=== PATIENT | female | born 1950 | race Caucasian/White ===

== ENCOUNTER 2023-10-27 12:21 | Outpatient (AMB) | payer MEDICARE, BC, SELFPAY ==
--- NOTE | 2023-10-27 12:39 | MHC.OFFVIS ---
Vital Signs 10/27/23 12:50 Height 5 ft 3 in Weight 192 lb BMI 34.0 BP 167/72 H Blood Pressure Location Lt brachial Position Sitting Pulse 78 Intake Visit Reasons: HX GERD Intake Note: Patient new consult for HX GERD. 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 Accompanied by: Self / Same As Patient Allergies Sulfa (Sulfonamide Antibiotics) Allergy (Unknown, Verified 02/27/24 12:55) Unknown Medication List - Last Reconciled 10/27/23 by Pamela Flores MD calcium citrate 250 mg PO DAILY cetirizine (Zyrtec) 10 mg PO DAILY PRN cholecalciferol (vitamin D3) 125 mcg PO DAILY escitalopram oxalate (Lexapro) 20 mg PO DAILY esomeprazole magnesium 20 mg PO DAILY HPI HPI HX GERD: Details: Initial GI clinic visit for this 72 YF for FU of GERD, hiatal hernia, multiple gastric polyps and hx of colon polyps LABS IN [facility] : None IMAGING STUDIES: None TODAY'S VISIT: Moved to [place] from [place] Lost her last Sep and has 2 daughter ([place] and [place]) Scheduled to see Dr Pratibha Titus in [place] in 2023 ([phone]) Pt is status post fundoplication 10 yrs ago Recently diagnosed with sleep apnea and started using a CPAP on Tuesday Having EGD every 6 months Had Colon in 05/23 Pt complains of heartburn and has been taking Esomeprazole 20 mg once a day and trying to reduce it Denies recent change in bowel habits, constipation, diarrhea, black stools or rectal bleeding. Patient admits to a hx of sleep apnea and denies major cardiac or pulmonary problems Denies problems with anesthesia in the past. Denies being on chronic anticoagulation. Takes Flax seed oil and Alleve prn for knee pain. Dad had colon polyps in his 50's or 60's Patient denies known family history of colon cancer or other GI malignancies. She was seeing a Urologist for microscopic hematurea - benign fatty tumor FU Cystoscopy 6 months and then once a year She was prescribed a vaginal insert which she has stopped taking Wt gain due to stress eating in the past and has started exercising at [employer] [facility] PAST GI HISTORY BY REVIEW OF MEDICAL RECORDS: 04/2023 EGD showed a moderate sized hiatal hernia and a Schatzki's ring which was dilated to 20 mm with a savory dilator. Fundic gland polyps was ablated with hot biopsy in the gastric body A hyperplastic polyp was removed from the cardia with a hot snare Gastric biopsies were negative for Helicobacter pylori and intestinal metaplasia Pt reports having an EGD every 6 months for FU of multiple gastric polyps 05/2023 Colonoscopy showed external hemorrhoids and rectosigmoid polyps were ablated. [facility] Medical History (Updated 03/01/24 @ 17:00 by Pamela Flores MD) Schatzki's ring Anxiety Microscopic hematuria Sleep apnea GERD (gastroesophageal reflux disease) Surgical History Hx of cystoscopy History of Parker fundoplication Hx of tonsillectomy Hx of colonoscopy History of esophagogastroduodenoscopy (EGD) Social History Household Members: Family Alcohol intake: current Alcohol intake frequency: holidays/special occasions only Patient Tobacco Use Status: Never used Tobacco Are you DNR?: No Advance Directives: No Advance Directives Information Provided: Yes Nutrition Risks: No Nutritional Risk Physical Exam Vital Signs: Last Vital Signs Pulse 78 10/27/23 12:50 BP 167/72 H 10/27/23 12:50 BMI result Body Mass Index 34.0 Const General: healthy appearing, no acute distress and anxious Nutritional Appearance: obese Orientation/consciousness: patient oriented x3 Limitations: no limitations HEENT Head: Yes normal to inspection Ears: hearing grossly normal bilaterally Eyes Sclerae: sclerae normal Pupils: Equal, round and reactive pupils present Neck Neck: Yes normal visual inspection Chest Chest palpation & inspection: normal inspection of the chest Resp Effort & Inspection: normal respiratory effort Auscultation: clear to auscultation bilaterally Cardio Palpation: normal PMI Rate: regular rate Rhythm: regular rhythm Heart sounds: S1 normal heart sound present, S2 normal heart sound present and no murmurs GI Palpation (GI): Soft to palpation, nontender and No hepatosplenomegaly present Auscultation: normal bowel sounds Rectal Exam - Female: deferred Skin General skin exam: no rashes or lesions noted Neuro General: patient oriented x3, gait normal and moves all extremities Cranial nerves: Yes Equal, round and reactive pupils present Psych Appearance: grossly normal Mental Status: mental status grossly normal Assessment & Plan Assessment & Plan (1) Hyperplastic polyps of stomach: Code(s): K31.7 - Polyp of stomach and duodenum Category: Medical (2) Fundic gland polyps of stomach, benign: Code(s): D13.1 - Benign neoplasm of stomach Category: Medical (3) GERD (gastroesophageal reflux disease): Code(s): K21.9 - Gastro-esophageal reflux disease without esophagitis Category: Medical (4) Hiatal hernia: Code(s): K44.9 - Diaphragmatic hernia without obstruction or gangrene Category: Medical (5) History of colon polyps: Code(s): Z86.010 - Personal history of colonic polyps Category: Medical Plan 72 YF for FU of GERD, hiatal hernia, multiple gastric polyps, colon polyps, anxiety and sleep apnea 04/2023 EGD showed a moderate sized hiatal hernia and a Schatzki's ring which was dilated to 20 mm with a savory dilator. Fundic gland polyps was ablated with hot biopsy in the gastric body A hyperplastic polyp was removed from the cardia with a hot snare Gastric biopsies were negative for Helicobacter pylori and intestinal metaplasia Pt reports having an EGD every 6 months for FU of multiple gastric polyps 05/2023 Colonoscopy showed external hemorrhoids and rectosigmoid polyps were ablated (no path available) Pt was advised to take Famotidine 20 mg twice daily Pt was advised to schedule an EGD summer for FU of gastric polyps She will be due for a colonoscopy in 05/2028 for follow-up of colon polyp FU in 3 months Medications: New famotidine (Pepcid) 20 mg PO BID 60 tabs 3RF 30 days escitalopram oxalate (Lexapro) 20 mg PO DAILY 60 tabs 3RF 60 days F41.9 - Anxiety disorder, unspecified Coding Level of Care Code New Pt Level 4 (78866) Diagnoses Hyperplastic polyps of stomach K31.7 Fundic gland polyps of stomach, benign D13.1 GERD (gastroesophageal reflux disease) K21.9 Hiatal hernia K44.9 History of colon polyps Z86.010 Time Spent (min) 27
[2023-10-27 12:50] VITALS: BP 167/72; PULSE 78; BMI 34.0
== END 2023-10-27 13:54 | disposition home or self-care (01) ==
PROVIDERS: Visit Provider Internal Medicine Gastroenterology
DX: K31.7 Polyp of stomach and duodenum (principal); D13.1 Benign neoplasm of stomach; K21.9 Gastro-esophageal reflux disease without esophagitis; K44.9 Diaphragmatic hernia without obstruction or gangrene; Z86.010 Personal history of colon polyps
CPT/HCPCS: 99204

== ENCOUNTER → 2023-10-27 12:21 | Outpatient (BNVA) | payer MEDICARE, BC, SELFPAY | PROVIDERS: Visit Provider Internal Medicine Gastroenterology | DX: K21.9 Gastro-esophageal reflux disease without esophagitis (principal); K44.9 Diaphragmatic hernia without obstruction or gangrene; K31.7 Polyp of stomach and duodenum | CPT/HCPCS: 99202 ==

== ENCOUNTER 2024-02-27 11:06 | Day surgery (SDC) | payer MEDICARE, BC, SELFPAY ==
[2024-02-23 14:10] VITALS: BMI 34.0
--- NOTE | 2024-02-24 09:58 | HO.ANESPROP2 ---
Documented by User: Estrella Telles NP 02/24/24 09:58 HPI - Anesthesia Eval Consult details Narrative: 73yo F for Upper Endoscopy PMFSH Active Problems Active Problems: All Active Problems Anxiety (Acute) Past Medical History Medical History Anxiety Microscopic hematuria Sleep apnea GERD (gastroesophageal reflux disease) Surgical History Surgical History Hx of cystoscopy History of Parker fundoplication Hx of tonsillectomy Hx of colonoscopy History of esophagogastroduodenoscopy (EGD) Social History Social History Household Members: Family Alcohol intake: current Alcohol intake frequency: holidays/special occasions only Patient Tobacco Use Status: Never used Tobacco Are you DNR?: No Advance Directives: No Advance Directives Information Provided: Yes Nutrition Risks: No Nutritional Risk Meds Allergies Allergy/AdvReac Type Severity Reaction Status Date / Time Sulfa (Sulfonamide Allergy Unknown Unknown Verified 02/27/24 12:55 Antibiotics) Home Medications ?Medication ?Instructions ?Recorded ?Confirmed ?Last Taken ?Type calcium citrate 250 mg PO DAILY 10/27/23 02/27/24 Unknown History cetirizine 10 mg tablet (Zyrtec) 10 mg PO DAILY PRN Allergic 10/27/23 02/27/24 Unknown History Symptoms cholecalciferol (vitamin D3) 125 125 mcg PO DAILY 10/27/23 02/27/24 Unknown History mcg (5,000 unit) capsule esomeprazole magnesium 20 mg 20 mg PO DAILY 10/27/23 02/27/24 Unknown History capsule,delayed release Exam Height,Weight and Vital Signs: Height 5 ft 3 in Weight 87.09 kg Assessment and Plan Assessment Anesthesia Assessment: Chart Reviewed Documented by User: Luz Astorga MD 02/27/24 13:43 PMFSH Past Medical History Medical History Anxiety Microscopic hematuria Sleep apnea GERD (gastroesophageal reflux disease) Functional capacity: uses cane/walker Surgical History Surgical History Hx of cystoscopy History of Parker fundoplication Hx of tonsillectomy Hx of colonoscopy History of esophagogastroduodenoscopy (EGD) History of Problems with Anesthesia: No Social History Social History Household Members: Family Alcohol intake: current Alcohol intake frequency: holidays/special occasions only Patient Tobacco Use Status: Never used Tobacco Are you DNR?: No Advance Directives: No Advance Directives Information Provided: Yes Nutrition Risks: No Nutritional Risk Meds Allergies Allergy/AdvReac Type Severity Reaction Status Date / Time Sulfa (Sulfonamide Allergy Unknown Unknown Verified 02/27/24 12:55 Antibiotics) Home Medications ?Medication ?Instructions ?Recorded ?Confirmed ?Last Taken ?Type calcium citrate 250 mg PO DAILY 10/27/23 02/27/24 Unknown History cetirizine 10 mg tablet (Zyrtec) 10 mg PO DAILY PRN Allergic 10/27/23 02/27/24 Unknown History Symptoms cholecalciferol (vitamin D3) 125 125 mcg PO DAILY 10/27/23 02/27/24 Unknown History mcg (5,000 unit) capsule esomeprazole magnesium 20 mg 20 mg PO DAILY 10/27/23 02/27/24 Unknown History capsule,delayed release Exam Airway Mallampati Class: III TM Dist: >3cm Neck ROM: Full Loose/Missing/Broken Teeth: No Heart: RRR Lungs: CTA Assessment and Plan Assessment Anesthesia Assessment: Anesthesia Plan Discussed Final Anesthetic Review History of Problems with Anesthesia: No NPO: Yes ASA Class: III Final Preanesthetic Review: Meds/Allgs Chart Reviewed, Consent Obtained/Reviewed and Anes Risks/Benef Reviewed Patient Risk: Intermediate Procedure Risk: Intermediate Anesthetic Plan Anesthetic Plan: MAC: Disposition: Standard PACU
[2024-02-27 12:31] VITALS: BMI 33.9
[2024-02-27] MEDS: Lactated Ringers 1,000 ML 100 ML IVCONT (12:44)
[2024-02-27 12:54] VITALS: BP 150/80; PULSE 65; RESP 18; TEMP 36.7; O2SAT 96
--- NOTE | 2024-02-27 13:32 | MHC.SHP ---
Pre-Procedural Eval Section A - 24 Hr Update-Section A only Date of Service: 02/27/24 The patient is an INPATIENT: No The patient has been examined within 24 hours of the surgical procedure. The History & Physical has been completed within 30 days and I have reviewed it.: No Section B - Complete if H&P > 30 days Chief Complaint: GERD Relevant Family History (Specify if Yes): No Relevant Social History: None Present Medications: see Short Stay Collaborative assessment Medical History: Significant History (Anxiety, GERD, sleep apnea) History of Previous Operations: Relevant previous surgery/procedure and date(s) (Hx of tonsillectomy Hx of colonoscopy History of esophagogastroduodenoscopy (EGD)) Allergies: Allergies Allergy/AdvReac Type Severity Reaction Status Date / Time Sulfa (Sulfonamide Allergy Unknown Unknown Verified 02/27/24 12:55 Antibiotics) Review of Systems Sugical H&P ROS: Negative: Constitution, Cardiovascular and Respiratory Exam Surgical H&P Exam: Normal: Heart, Normal: Lungs, Normal: Extremities and Normal: Abdomen Plan Diagnosis/Plan: Change (Proceed with EGD) I have reviewed the history and physical and performed a pertinent physical examination on my patient. No changes have occurred unless specified. Time Spent With Patient Time: Total time managing care of this patient today ____ minutes.
[2024-02-27 14:15] VITALS: BP 123/63; PULSE 73; RESP 18; TEMP 36.6; O2SAT 96
--- NOTE | 2024-02-27 14:16 | P.OP_ITS ---
Operative Note Operative Note Date of Service: 02/27/24 Narrative: FLEXIBLE TRANSORAL UPPER GASTROINTESTINAL ENDOSCOPY WITH BIOPSIES AND WATS (3D) AND TISSUE CYPHER Pre-op diagnosis: GERD Post-op diagnosis: GERD, esophagitis, hiatal hernia, gastric polyps Endoscopist:? Pamela Flores MD Anesthesia:?MAC UPPER ENDOSCOPY Consent: Indications for the procedure and potential complications of bleeding, perforation, reaction to medications and missed diagnosis were discussed with the patient and informed consent was obtained. Instrument: Olympus GIF H 190 mid size upper endoscope Monitoring: Vital signs and clinical assessment, continuous EKG monitoring, Pulse oximetry, Carbon Dioxide monitoring and blood pressure monitoring were done throughout the procedure. Procedure: The patient was placed in the left lateral decubitis position and pre-procedure medications were administered and a bite block was placed. The endoscope was inserted into the mouth and advanced under direct vision to the third part of duodenum. A careful inspection was made as the upper endoscope was withdrawn including a retroflexed examination of the proximal stomach; Findings and interventions are described below. Findings: Larynx: Normal Esophagus: GE junction at 30 cms, large hiatal hernia 30 to 35 cms. 1 cms segment of suspected Lujan's from 29 to 30 cms - biopsies were obtained and brushings were obtained for Watt (3D). Focal esophagitis at 29 cms. Stomach: Multiple 5 to 15 mm benign appearing gastric polyps in the body and fundus - biopsied. One larger polyp was removed with a hot snare and polyp was not retrieved Mild gastric antral erythema - biopsies were obtained from the antrum. Grade 4 flap valve on retroflexed examination of the cardia. Duodenum: Normal bulb and descending duodenum Intervention: Biopsies as noted above Impression and Post Procedure Diagnosis: Endoscopy Findings: ESOPHAGUS: large hiatal hernia 30 to 35 cms. 1 cms segment of suspected Lujan's from 29 to 30 cms - biopsies were obtained and brushings were obtained for Watt (3D). Focal esophagitis at 29 cms. STOMACH: Gastritis and multiple gastric polyps Plan: Pt has a FU appointment on 04/05/[address] Flores. Above findings were reviewed with the patient and relevant handouts were given and the discharge area. BIOPSIES A. Stomach, antrum, biopsy: Antral-type mucosa with mild chronic inactive inflammation; no Helicobacter organisms seen. B. Stomach, polyp: Fundic gland polyp with background mild chronic inactive inflammation; no Helicobacter organisms seen. C. Esophagus, distal, biopsy: - Cardiofundic-type mucosa with moderate chronic active inflammation; no fully- developed intestinal metaplasia seen. - No squamous epithelium identified
[2024-02-27 14:30] VITALS: BP 125/65; PULSE 65; RESP 18; O2SAT 95
[2024-02-27 14:45] VITALS: BP 131/71; PULSE 68; RESP 18; TEMP 36.6; O2SAT 96
== END 2024-02-27 15:14 | disposition home or self-care (01) ==
PROVIDERS: PCP Student in an Organized Health Care Education/Training Program; Visit Provider Internal Medicine Gastroenterology
PROC: 0DJ08ZZ Inspection of Upper Intestinal Tract, Via Natural or Artificial Opening Endoscopic (ICD-10-PCS; CPT 43235; principal; 2024-02-27 13:20)
DX: K21.9 Gastro-esophageal reflux disease without esophagitis (principal); K22.70 Barrett's esophagus without dysplasia; K31.7 Polyp of stomach and duodenum; K20.80 Other esophagitis without bleeding; K44.9 Diaphragmatic hernia without obstruction or gangrene; G47.30 Sleep apnea, unspecified; Z99.89 Dependence on other enabling machines and devices; Z79.899 Other long term (current) drug therapy; Z88.2 Allergy status to sulfonamides
CPT/HCPCS: 43239; 88305; 88313; J1920; J2704

== ENCOUNTER → 2024-02-27 11:06 | Outpatient (BNV) | payer MEDICARE, BC, SELFPAY | PROVIDERS: PCP Student in an Organized Health Care Education/Training Program; Visit Provider Internal Medicine Gastroenterology | DX: K21.00 Gastro-esophageal reflux disease with esophagitis, without bleeding (principal); K31.7 Polyp of stomach and duodenum; K22.70 Barrett's esophagus without dysplasia; K29.70 Gastritis, unspecified, without bleeding | CPT/HCPCS: 43239; 43251 ==

== ENCOUNTER 2024-05-03 09:14 | Outpatient (AMB) | payer MEDICARE, BC, SELFPAY ==
--- NOTE | 2024-05-03 09:20 | MHC.OFFVIS ---
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 by: Self / Same As Patient Allergies Sulfa (Sulfonamide Antibiotics) Allergy (Unknown, Verified 05/03/24 09:26) Unknown Medication List - Last Reconciled 05/03/24 by Pamela Flores MD escitalopram oxalate (Lexapro) 20 mg PO DAILY 60 days esomeprazole magnesium 20 mg PO DAILY famotidine (Pepcid) 20 mg PO BID 30 days fluticasone propionate 50 mcg/actuation (Flonase Allergy Relief) 1 spray intranasal DAILY [id number] 500-416.6-20 mg tabs PO levocetirizine (Xyzal) 5 mg PO QPM PRN multivitamin 1 tab PO DAILY red yeast rice 1,200 mg PO DAILY HPI HPI EGD results: Details: GI clinic visit for this 73 YF for FU of GERD, hiatal hernia, multiple gastric polyps and hx of colon polyps TODAY'S VISIT: EGD results were reviewed with the patient 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 behind the nose Referred to ENT surgeon Taking Esomeprazole in the am and Famotidine at 8 pm with adequate control of hb Taking Hydrolyzed Collagen powder for joint confucianism PAST VISITS: Moved to [place] from [place] Lost her last Sep and has 2 daughter ([place] and [place]) Scheduled to see Dr Pratibha Titus in [place] in 2023 ([phone]) Pt had hiatal hernia repair with fundoplication 10 yrs ago Complains of coughing after eating spicy foods (like rondon in red wine with onions) Recently diagnosed with sleep apnea and started using a CPAP on Tuesday Having EGD every 6 months Had Colon in 05/23 Pt complains of heartburn and has been taking Esomeprazole 20 mg once a day and trying to reduce it Denies recent change in bowel habits, constipation, diarrhea, black stools or rectal bleeding. Patient admits to a hx of sleep apnea and denies major cardiac or pulmonary problems Denies problems with anesthesia in the past. Denies being on chronic anticoagulation. Takes Flax seed oil and Alleve prn for knee pain. Dad had colon polyps in his 50's or 60's Patient denies known family history of colon cancer or other GI malignancies. She was seeing a Urologist for microscopic hematurea - benign fatty tumor FU Cystoscopy 6 months and then once a year She was prescribed a vaginal insert which she has stopped taking Wt gain due to stress eating in the past and has started exercising at [facility] LABS IN [facility] : None IMAGING STUDIES: None PAST GI HISTORY BY REVIEW OF MEDICAL RECORDS: 04/2023 EGD showed a moderate sized hiatal hernia and a Schatzki's ring which was dilated to 20 mm with a savory dilator. Fundic gland polyps was ablated with hot biopsy in the gastric body A hyperplastic polyp was removed from the cardia with a hot snare Gastric biopsies were negative for Helicobacter pylori and intestinal metaplasia Pt reports having an EGD every 6 months for FU of multiple gastric polyps 05/2023 Colonoscopy showed external hemorrhoids and recto-sigmoid polyps were ablated PFSH Medical History (Updated 03/01/24 @ 17:00 by Pamela Flores MD) Schatzki's ring Anxiety Microscopic hematuria Sleep apnea GERD (gastroesophageal reflux disease) Surgical History (Updated 04/11/24 @ 14:11 by Kristi Hartley) Hx of cystoscopy History of Parker fundoplication Hx of tonsillectomy Hx of colonoscopy History of esophagogastroduodenoscopy (EGD) Social History Household Members: Family Alcohol intake: current Alcohol intake frequency: holidays/special occasions only Patient Tobacco Use Status: Never used Tobacco Review of Systems Const All systems reviewed & are unremarkable except as noted in HPI and below Physical Exam Const General: healthy appearing, no acute distress and anxious Nutritional Appearance: obese Orientation/consciousness: patient oriented x3 Limitations: no limitations HEENT Head: Yes normal to inspection Ears: hearing grossly normal bilaterally Eyes Sclerae: sclerae normal Pupils: Equal, round and reactive pupils present Neck Neck: Yes normal visual inspection Chest Chest palpation & inspection: normal inspection of the chest Resp Effort & Inspection: normal respiratory effort Auscultation: clear to auscultation bilaterally Cardio Palpation: normal PMI Rate: regular rate Rhythm: regular rhythm Heart sounds: S1 normal heart sound present, S2 normal heart sound present and no murmurs GI Palpation (GI): Soft to palpation, nontender and No hepatosplenomegaly present Auscultation: normal bowel sounds Rectal Exam - Female: deferred Skin General skin exam: no rashes or lesions noted Neuro General: patient oriented x3, gait normal and moves all extremities Cranial nerves: Yes Equal, round and reactive pupils present Psych Appearance: grossly normal Mental Status: mental status grossly normal Assessment & Plan Assessment & Plan (1) GERD (gastroesophageal reflux disease): Code(s): K21.9 - Gastro-esophageal reflux disease without esophagitis Category: Medical (2) Fundic gland polyps of stomach, benign: Code(s): D13.1 - Benign neoplasm of stomach Category: Medical (3) Hyperplastic polyps of stomach: Code(s): K31.7 - Polyp of stomach and duodenum Category: Medical (4) Hiatal hernia: Code(s): K44.9 - Diaphragmatic hernia without obstruction or gangrene Category: Medical (5) History of colon polyps: Code(s): Z86.010 - Personal history of colon polyps Category: Medical Plan 73 YF for FU of GERD, hiatal hernia, multiple gastric polyps, colon polyps, anxiety and sleep apnea 04/2023 EGD showed a moderate sized hiatal hernia and a Schatzki's ring which was dilated to 20 mm with a savory dilator. Fundic gland polyps was ablated with hot biopsy in the gastric body A hyperplastic polyp was removed from the cardia with a hot snare Gastric biopsies were negative for Helicobacter pylori and intestinal metaplasia Pt reports having an EGD every 6 months for FU of multiple gastric polyps (some polyps were hyperplastic on biopsy) 05/2023 Colonoscopy showed external hemorrhoids and rectosigmoid polyps were ablated (no path available) Pt was advised to take Famotidine 20 mg twice daily 02/27/24 EGD was performed for FU of gastric polyps and showed a large hiatal hernia 30 to 35 cms, a 1 cms segment of suspected Lujan's from 29 to 30 cms, focal esophagitis at 29 cms, . Gastritis and multiple gastric polyps BIOPSIES A. Stomach, antrum, biopsy: Antral-type mucosa with mild chronic inactive inflammation; no Helicobacter organisms seen. B. Stomach, polyp: Fundic gland polyp with background mild chronic inactive inflammation; no Helicobacter organisms seen. C. Esophagus, distal, biopsy: - Cardiofundic-type mucosa with moderate chronic active inflammation; no fully-developed intestinal metaplasia seen. - No squamous epithelium identified 05/03/24 Taking Esomeprazole in the am and Famotidine at 8 pm with adequate control of hb Advised to take an extra Famotidine 1 hour before taking spicy foods Pt will be scheduled for an EGD in 1 year (FU of hyperplastic gastric polyps) She will be due for a colonoscopy in 05/2028 for follow-up of colon polyp FU in 4 month Coding Level of Care Code Est Pt Level 4 (97137) Diagnoses GERD (gastroesophageal reflux disease) K21.9 Fundic gland polyps of stomach, benign D13.1 Hyperplastic polyps of stomach K31.7 Hiatal hernia K44.9 History of colon polyps Z86.010 Time Spent (min) 25
[2024-05-03 09:26] VITALS: BP 145/65; PULSE 59; BMI 33.0
== END 2024-05-03 09:55 | disposition home or self-care (01) ==
PROVIDERS: PCP Student in an Organized Health Care Education/Training Program; Visit Provider Internal Medicine Gastroenterology
DX: K21.9 Gastro-esophageal reflux disease without esophagitis (principal); K31.7 Polyp of stomach and duodenum; K29.70 Gastritis, unspecified, without bleeding
CPT/HCPCS: 99214

== ENCOUNTER → 2024-05-03 09:14 | Outpatient (BNVA) | payer MEDICARE, BC, SELFPAY | PROVIDERS: PCP Student in an Organized Health Care Education/Training Program; Visit Provider Internal Medicine Gastroenterology | DX: K21.9 Gastro-esophageal reflux disease without esophagitis (principal); K44.9 Diaphragmatic hernia without obstruction or gangrene; K31.7 Polyp of stomach and duodenum; D13.1 Benign neoplasm of stomach; Z86.0100 Personal history of colon polyps, unspecified | CPT/HCPCS: 99212 ==

== ENCOUNTER → 2024-09-07 07:11 | Outpatient (AMB) | payer MEDICARE, BC, SELFPAY ==
--- OUTSIDE RECORDS SUMMARY | 2024-09-07 07:13 | XMS_ITS | Patient Health Record ---
[facility] Organization [facility] Address [address] [place] [address] Care Team Providers Care Bullet Casting Operator Name Role Phone Pratibha Robbins MD Primary Care Provider Un available MagdyVonen Unavailable [phone] Radha Ahmadi Unavailable [phone] Allergies Allergen (clinical drug ingredient) Drug/Non Drug Allergy documented on EMR Reaction Allergy Type Onset Date Status ibuprofen Advil Unknown Drug Allergy Active Iodine Unknown Drug Allergy Active Seasonale Unknown Drug Allergy Active Shrimp Flavor Unknown Drug Allergy Act terrance Substance with sulfonamide structure and antibacterial mechanism of action (substance) Sulfa Antibiotics Unknown Drug Allergy Active Reason For Referral No Information Medications Medication SIG (Take, Route, Frequency, Duration) Notes Start Date End Date Status Azelaic Acid Active Flaxseed Oil Not-Henry ing Clobetasol 17 Propionate Active Meloxicam 7.5 MG Oral for 30 Days Not-Taking Lexapro Active ZyrTEC Not-Taking Multivitamin Active Calcium Citrate Not- Taking Augmentin 500-125 MG 1 tablet Orally Twi ce a day for 10 day(s) 05/08/2024 Not-Taking Hydrolyzed Silk Acti ve Vitamin D3 Not-Takin g Red Yeast Rice Activ e Cephalexin 500 MG 1 capsule Orally Luz Elena ry 12 hours for 5 days Active Flonase Active [employer] Orthotics as directed 03/06/2024 Active Physical Therapy . . . 2-3x/week for 3- 4 weeks Active Esomeprazole Magnesium 20 MG TAKE ONE CAPSULE BY MOUTH TWICE DAILY Oral for 90 Days Active Famotidine 20 MG Oral for 30 Days Active Social History Tobacco Use: Social History Observation Description Date Details (start date - stop date) Never Smoker NA - NA Tobacco Use/Smoking Question Answer Notes Are you a: nonsmoker Additional Findings: Tobacco Non-User Current no n-smoker Alcohol Screen Question Answer Notes Did you have a drink contain ing alcohol in the past year? Yes How often did you have a dri nk containing alcohol in the past year? Monthly or less (1 point) Points 1 Interpretation Negative Tobacco use other than smoking: Question Answer Notes Are you an other tobacco user? No Problems Problem Type SNOMED Code ICD Code Onset Dates Problem Status W/U Status Risk Notes Problem Plantar fascial fibromatosis (89896763) Plantar fasciitis, bilateral (M72.2) Active confirmed Vital Signs Height 5ft3in in 06/12/2024 Weight 195 lbs 06/12/2024 BMI 34.54 kg/m2 06/12/2024 Procedures Procedure Date Ordered Date Performed Result Body Sit e 80520-[id number] OF HEMATOMA/FLUID 05/08/2024 N/A Encounters Encounter Location Date Provider Diagnosis [address] [address] 03/06/2024 Nallely Perica Tinea unguium B35.1 ; Pain in right toe(s) M79.674 ; Pain in right foot M79.671 ; Other myositis of right foot M60.871 ; Plantar fasciitis, bilateral M72.2 ; Bursitis of right foot M77.51 ; Pain in left foot M79.672 ; Other myositis of left foot M60.872 and Bursitis of left foot M77.[address] [address] 04/24/2024 Nallely Perica Tinea unguium B35.1 ; Plantar fasciitis, bilateral M72.2 ; Pain in right toe(s) M79.674 ; Pain in right foot M79.671 ; Other myositis of right foot M60.871 ; Bursitis of right foot M77.51 ; Pain in left foot M79.672 ; Other myositis of left foot M60.872 and Bursitis of left foot M77.[address] [address] 05/08/2024 Radha Ahmadi Hematoma of toe of right foot, initial encounter S90.121A ; Abscess of toe of right foot L02.611 and Acute cellulitis L03.90 [facility] [address] [address] 05/15/2024 Radha Ahmadi Cellulitis of toe of right foot L03.[address] [facility] [address] 06/12/2024 Nallely Curran Abscess of toe, right L02.611 ; Cellulitis of toe of right foot L03.031 ; Tinea unguium B35.1 ; Pain in right toe(s) M79.674 and Plantar fasciitis, bilateral M72.2 [facility] [address] [address] 06/04/2024 Nallely Perica [facility] [address] [address] 12/14/2023 Nallely Perica [facility] [address] [address] 03/06/2024 Nallely Perica [facility] [address] [address] 03/06/2024 Nallely Perica [facility] [address] [address] 04/24/2024 Nallely Perica [facility] [address] [address] 05/08/2024 Nallely Perica [facility] [address] [address] 06/12/2024 Nallely Perica [facility] [address] [address] 07/09/2024 Nallely Curran Assessments Encounter Date Diagnosis (ICD Code) Assessment Notes Treatment Notes Treatment Clinical Notes Section Notes 03/06/2024 Tinea unguium (ICD-10 - B35.1) 04/24/2024 Tinea unguium (ICD-10 - B35.1) 04/24/2024 Plantar fasciitis, bilateral (ICD-10 - M72.2) Patient Educated with: HEEL CORD STRETCHES.pdf (HEEL CORD STRETCHES.pdf) Patient Educated with: RICE THERAPY.pdf (RICE THERAPY.pdf) 05/08/2024 Abscess of toe of right foot (ICD-10 - L02.611) 05/08/2024 Hematoma of toe of right foot, initial encounter (ICD-10 - S90.121A) Patient Educated with: RICE THERAPY.pdf (RICE THERAPY.pdf) 05/15/2024 Cellulitis of toe of right foot (ICD-10 - L03.031) 06/12/2024 Abscess of toe, right (ICD-10 - L02.611) Patient Educated with: WOUND CARE INSTRUCTIONS.p df (WOUND CARE INSTRUCTIONS.p df) 06/12/2024 Cellulitis of toe of right foot (ICD-10 - L03.031) 06/12/2024 Tinea unguium (ICD-10 - B35.1) 05/08/2024 Acute cellulitis (ICD-10 - L03.90) 04/24/2024 Pain in right toe(s) (ICD-10 - M79.674) 03/06/2024 Pain in right toe(s) (ICD-10 - M79.674) 03/06/2024 Pain in right foot (ICD-10 - M79.671) 06/12/2024 Pain in right toe(s) (ICD-10 - M79.674) 04/24/2024 Pain in right foot (ICD-10 - M79.671) 06/12/2024 Plantar fasciitis, bilateral (ICD-10 - M72.2) 03/06/2024 Other myositis of right foot (ICD-10 - M60.871) 04/24/2024 Other myositis of right foot (ICD-10 - M60.871) 04/24/2024 Bursitis of right foot (ICD-10 - M77.51) 03/06/2024 Bursitis of right foot (ICD-10 - M77.51) 03/06/2024 Plantar fasciitis, bilateral (ICD-10 - M72.2) Patient Educated with: HEEL CORD STRETCHES.pdf (HEEL CORD STRETCHES.pdf) Patient Educated with: RICE THERAPY.pdf (RICE THERAPY.pdf) 03/06/2024 Pain in left foot (ICD-10 - M79.672) 04/24/2024 Pain in left foot (ICD-10 - M79.672) 04/24/2024 Other myositis of left foot (ICD-10 - M60.872) 03/06/2024 Other myositis of left foot (ICD-10 - M60.872) 03/06/2024 Bursitis of left foot (ICD-10 - M77.52) 04/24/2024 Bursitis of left foot (ICD-10 - M77.52) 05/08/2024 Other Plan Of Treatment Pending Test Test Name Order Date X ray : Foot, left 3V 03/06/2024 X ray : Foot, right 3V 03/06/2024 [id number] OF HEMATOMA/FLUID 024 Next Appt Details Provider Name:Nallely root, 09/07/2024 12:00:00 PM, [address] [place] [address], [phone], Insurance Providers Payer Name Payer Address Payer Phone Subscriber Number Group Number Insured Name Patient Relationship to Insured Coverage Start Date Coverage End Date Medicare [employer] [address] [place] [address] [id number] Sana Lopes Self - patient is the insured [facility] [address] [place] [address] [id number] Sana Lopes Self - patient is the insured Medical (General) History Medical History History ICD Code Anemia Anxiety Arthritis asthma Back pain Knee Pain Cataracts Hiatal hernia Reflux ( GERD) Measles Mumps Chicken pox Sleep apnea Surgical History Surgery Date(Month/Year) colonoscopy 2022 EGD 2022
--- OUTSIDE RECORDS SUMMARY | 2024-09-07 07:13 | XMS_ITS ---
Author Organization [facility] Address [address] [place] [address] Care Team Providers Care Side Framer Name Role Phone Rosendo SAMUEL, Pratibha Primary Care Provider Un available Nallely Curran Unavailable [phone] Encounters Encounter Location Date Provider Diagnosis [address] [address] 07/10/2024 Nallely Curran Plan Of Treatment Next Appt Details Provider Name:Nallely root, 09/07/2024 12:00:00 PM, [address] [place], [address], Progress Notes * Sana SHEPHERD KDOB:1950 (73 yo F)Acc No.[id number]:07/10/2024 Progress Note Patient:?CORA Sana Ilri Provider:?Nallely Curran DPM :1950???Age:73 Y???Sex:Female D ate:07/10/2024 Address:[address] [facility], [place], [place] Pcp:Pratibha Robbins MD Subjective: * Chief Complaints: * ??? * Medical History:? Objective: * Vitals:? Assessment: Plan: * Treatment: * Images: * The named appointment provid er may or may not be the originator of this progress note, and it is not deemed complete until electronically signed by the appointment provider. Sign off status: Pending * Provider:?Nallely Curran DPM Date:?05/2024 Generated for Gretel chen/Rebel/Kerry on:?09/07/2024 07:13 AM EST
--- OUTSIDE RECORDS SUMMARY | 2024-09-07 07:13 | XMS_ITS ---
Author Organization [facility] Address [address] [place] [address] Care Team Providers Care Commercial Food Instructor Name Role Phone Tino Jarrett Primary Care Provider REASON FOR VISIT 6 MONTHS F/UP WITH LABS 1 WEEK PRIOR Encounters Encounter Location Date Provider Diagnosis [facility] [address] [place] [address] 10/06/2023 Tino Jarrett Plan Of Treatment No Information Progress Notes * Sana SHEPHERDDOB:[birth year] (73 yo F)Acc No.[id number]:10/06/2023 Progress Notes Patient:?Sana SHEPHERD Provider:?Tino Jarrett MD :1950???Age:72 Y???Sex:Female D ate:10/06/2023 Address:[address], [place] Subjective: * Chief Complaints: * ???1. 6 MONTHS F/UP WITH LAB S 1 WEEK PRIOR. * Medical History:? * Ocular Surgical History:? Objective: * Vitals:? Assessment: Plan: * Treatment: * Care Plan Details* * Electronic signature of Lulu Jarrett MD on 09/07/2024 at 07:13 AM EST Sign off status: Pending * Provider:?Tino Jarrett MD Date:? Generated for Gretel chen/Rebel/Tobiasitting on:?09/07/2024 07:13 AM EST
--- OUTSIDE RECORDS SUMMARY | 2024-09-07 07:13 | XMS_ITS ---
Author Organization [facility] Address [address] [place] [address] Care Team Providers Care Protection Engineer Name Role Phone Pratibha Robbins MD Primary Care Provider Un available Nallely Curran Unavailable [phone] REASON FOR VISIT rs from 07/10/24 Encounters Encounter Location Date Provider Diagnosis [address] [address] 07/09/2024 Nallely Curran Plan Of Treatment Next Appt Details Provider Name:Nallely root, 09/07/2024 12:00:00 PM, [address] [place], [address], Progress Notes * Sana SHEPHERD KDOB:1950 (73 yo F)Acc No.[id number]:07/09/2024 Patient:?Sana SHEPHERD :1950???Age:73 Y???Sex:Female Address:[address] [facility], [place], [address] * true * Date:? Generated for Mariloui april/Rebel/eTransmitting on:?09/07/2024 07:13 AM EST
--- OUTSIDE RECORDS SUMMARY | 2024-09-07 07:14 | XMS_ITS ---
Author Organization [facility] Address [address] [address] Care Team Providers Care Deputy Sheriff Name Role Phone Tino Jarrett Primary Care Provider REASON FOR VISIT complaint STAT Encounters Encounter Location Date Provider Diagnosis [email or web address] [address] [place] [address] 09/05/2023 Tino Jarrett Plan Of Treatment No Information Progress Notes * Sana SHEPHERDDOB:[birth year] (72 yo F)Acc No.[id number]:09/05/2023 Patient:?Sana Shepherd :1950???Age:72 Y???Sex:Female Address:[address], [place], [address] * true * Date:? Generated for Gretel chen/Rebel/eTransmitting on:?09/07/2024 07:13 AM EST
--- OUTSIDE RECORDS SUMMARY | 2024-09-07 07:14 | XMS_ITS ---
Author Organization [facility] Address [address] [place] [address] Care Team Providers Care Beck Operator Name Role Phone Lulu Jarrettbaz Primary Care Provider [phone] REASON FOR VISIT Refill Request Medications Medication SIG (Take, Route, Frequency, Duration) Notes Start Date End Date Status Escitalopram Oxalate 20 MG 1 tablet Oral ly Once a day for 30 days Active Esomeprazole Magnesium 40 MG 1 capsule Orally Once a day for 30 days Active Encounters Encounter Location Date Provider Diagnosis [facility] - [address] [place] [address] 09/23/2023 Tino Jarrett Major depression single F32.0 and GERD (gastroesophageal reflux disease) K21.9 Assessments Encounter Date Diagnosis (ICD Code) Assessment Notes Treatment Notes Treatment Clinical Notes Section Notes 09/23/2023 Major depression single (ICD-10 - F32.0) 09/23/2023 GERD (gastroesophage al reflux disease) (ICD-10 - K21.9) Plan Of Treatment Medication Medication Name Sig Start Date Stop Date Notes Escitalopram Oxalate 20 MG 1 tablet Oral ly Once a day for 30 days Esomeprazole Magnesium 40 MG 1 capsule O rally Once a day for 30 days Progress Notes * Sana SHEPHERDDOB:[birth year] (72 yo F)Acc No.[id number]:09/23/2023 Patient:?Sana Shepherd :1950???Age:72 Y???Sex:Female Address:[address], [place], [address] * Refills? Refill Escitalopram Oxalate Tablet, 20 MG, Orally, 30, 1 tablet, Once a day, 30 days, Refills=0 Refill Esomeprazole Magnesium Capsule Delayed Release, 40 MG, Orally, 30 Capsule, 1 capsule, Once a day, 30 days, Refills=0 * true * Date:? Generated for Gretel chen/Rebel/Sallysmitting on:?09/07/2024 07:14 AM EST
--- OUTSIDE RECORDS SUMMARY | 2024-09-07 07:14 | XMS_ITS ---
Author Organization [facility] Address [address] [address] Care Team Providers Care Shoe Sprayer Name Role Phone LuizaLulu beltranbaz Primary Care Provider [phone] REASON FOR VISIT Refill Request Medications Medication SIG (Take, Route, Frequency, Duration) Notes Start Date End Date Status Escitalopram Oxalate 20 MG 1 tablet Oral ly Once a day for 30 days Active Esomeprazole Magnesium 40 MG 1 capsule Orally Once a day for 30 days Active Encounters Encounter Location Date Provider Diagnosis [facility] - [address] [place] [address] 09/23/2023 Tino Jarrett Major depression single F32.0 [...] * Sana SHEPHERDDOB:[birth year] (72 yo F)Acc No.[id number]:09/23/2023 Patient:?MariannePapito loz[place] :1950???Age:72 Y???Sex:Female Address:[address], [facility] [place], [address] * Refills? Refill Escitalopram Oxalate Tablet, 20 MG, Orally, 30, 1 tablet, Once a day, 30 days, Refills=0 Refill Esomeprazole Magnesium Capsule Delayed Release, 40 MG, Orally, 30 Capsule, 1 capsule, Once a day, 30 days, Refills=0 * true * Date:? Generated for Gretel chen/Rebel/Sallysmitting on:?09/07/2024 07:14 AM EST
--- OUTSIDE RECORDS SUMMARY | 2024-09-07 07:14 | XMS_ITS ---
Author Organization [facility] Address [address] [address] Care Team Providers Care Catastrophe Claims Supervisor Name Role Phone Tino Jarrett Primary Care Provider REASON FOR VISIT 6 MONTHS F/UP WITH LABS 1 WEEK PRIOR Encounters Encounter Location Date Provider Diagnosis [facility] [address] [place] [address] 10/06/2023 Tino Jarrett Plan Of Treatment No Information Progress Notes * Sana SHEPHERDDOB:[birth year] (73 yo F)Acc No.[id number]:10/06/2023 Progress Notes Patient:?Sana SHEPHERD Provider:?Tino Jarrett MD :1950???Age:72 Y???Sex:Female D ate:10/06/2023 Address:[address], [place] Subjective: * Chief Complaints: * ???1. 6 MONTHS F/UP WITH LAB S 1 WEEK PRIOR. * Medical History:? Objective: * Vitals:? Assessment: Plan: * Treatment: * Care Plan Details* * Electronic signature of Lulu Jarrett MD on 09/07/2024 at 07:13 AM EST Sign off status: Pending * Provider:?Tino Jarrett MD Date:? Generated for Gretel chen/Rebel/Tobiasitting on:?09/07/2024 07:13 AM EST
--- OUTSIDE RECORDS SUMMARY | 2024-09-07 07:14 | XMS_ITS ---
Author Organization [facility] Address [address] [place] [address] Care Team Providers Care Senior Sales Administrator Name Role Phone Tino Jarrett Primary Care Provider REASON FOR VISIT complaint STAT Encounters Encounter Location Date Provider Diagnosis [employer] [address] [address] 09/05/2023 Tino Jarrett Plan Of Treatment No Information Progress Notes * Sana SHEPHERDDOB:[birth year] (72 yo F)Acc No.[id number]:09/05/2023 Patient:?Sana Shepherd :1950???Age:72 Y???Sex:Female Address:[address], [place], [address] * true * Date:? Generated for Gretel chen/Rebel/eTransmitting on:?09/07/2024 07:13 AM EST
--- OUTSIDE RECORDS SUMMARY | 2024-09-07 07:14 | XMS_ITS | Data Portability ---
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 Lab None record ed. Referral None record ed. Procedures None record ed. Surgeries None record ed. Imaging None record ed. Medication Orders None record ed. Patient TargetsNo targets recorded. Patient InstructionsNo instructions recorded. Reason for Referral None Reported. Results Created Date Observation Date Name Description Value Unit Range Abnormal Flag Note LastModifiedBy Organization Detail LastModifiedTime 02/12/20 22 02/11/2022 PAP + HR HPV W REFLE X GENOT YPE (16 + 18/45 ) other info Other Inform ation Clini Bethanie fo :Nadya romane siva Elect megan lopez d by : Pro Stapleton MD on :01/30 11:25 :52 AM Not Available [facility] [address], [place], [address], 02/18/2022 12:10:44 02/12/20 22 02/18/2022 PAP + HR HPV W REFLE X GENOT YPE (16 + 18/45 ) cervix,thinp rep vial Cervi x,Thi nPrep Vial See Adequ acy Comme nt Speci men Adequ acy :Sati sfact ory for evalu ation . Prese nce or absen ce of endoc ervic al and/o r metap lasti c cells canno t be deter mined due to marke emilia atrop hy. NEGAT MAX FOR INTRA EPITH ELIAL LESIO N OR NATANAEL COLEMANCY Not Available [facility] [address], [place], [address], 02/18/2022 12:10:44 02/12/20 22 02/18/2022 PAP + HR HPV W REFLE X GENOT YPE (16 + 18/45 ) HPV HR (high risk) result Negati ve Not Available [facility] [address], [place], [address], 02/18/2022 12:10:44 Result Notes None recorded. Procedures Surgical History Date Name Laterality Status Provider Name and Address Organization Details Recorded Time 2 Date of Last Mammogram completed Tess Stockton (TERMED) [facility] 02/11/2022 13:16:20 0 Date of Last Pap Smear completed Tessfrancis Randleer (TERMED) [facility] 02/11/2022 13:16:20 ENT- Adenoidectomy/T onsillectomy completed Tess Tacker (TERMED) [facility] 02/11/2022 13:16:21 GI- Colonoscopy completed Tess Tacker (TERMED) [facility] 02/11/2022 13:16:21 Eye-Cataract Surgery completed Tess Tacker (TERMED) [facility] 02/11/2022 13:16:21 Derm-Skin Surgery completed Tses Tacker (TERMED) [facility] 02/11/2022 13:16:21 FLYING II INSTRUCTOR- Cryotherapy of the Cervix completed Tess Tacker (TERMED) [facility] 02/11/2022 13:16:21 Imaging Results None recorded. Procedure Notes None recorded. Medical Equipment None Reported. Allergies Allergen ID Allergen Name Allergen Category Reaction Reaction Severity Criticality Documentation Date Start Date Code Code System Note Provider Name and Address Organization Details Recorded Time [id number] Substance with sulfonami de structure and antibacte rial mechanism of action (substanc e) medicatio n Not available Not available Not available 02/11/2022 [id number] SNOMED Tess Stockton (TERMED) [facility] 13:19:06 Medications Name Sig Start Date Stop Date Status Note LastModified by Organization Details LastModified Time azithromyci n 250 mg tablet TAKE DIRECTED PER PACKAGE INSTRUCTI ONS 02/11 completed Not Available Not Available Not Available sucralfate 100 mg/mL oral suspension TAKE 10 ML BY MOUTH TWICE DAILY ON AN EMPTY STOMACH active Not Available Not Available No t Available esomeprazol e magnesium 40 mg capsule,del ayed release 02/11 completed Not Available Not Available Not Available methylpredn isolone 4 mg tablets in a dose pack TAKE BY MOUTH DIRECTED 02/11 completed Not Available Not Available Not Available clobetasol 0.05 % scalp solution APPLY EVERY NIGHT AT BEDTIME TO AFFECTED AREAS ON SCALP/FRO NTAL HAIRLINE UP TO 5 DAYS A WEEK active Not Available Not Available No t Available esomeprazol e magnesium 20 mg capsule,del ayed release TAKE ONE CAPSULE BY MOUTH TWICE DAILY active Not Available Not Available No t Available escitalopra m 10 mg tablet TAKE 1 TABLET BY MOUTH EVERY DAY active Not Available Not Available No t Available azelaic acid 15 % topical gel active Not Available Not Available Not Available bimatoprost 0.03 % drops with applicator, eyelash base APPLY 1 DROP VIA APPLICATO R ONCE A DAY NEEDED TO BROWS AND LASHES WITH APPLICATO R active Not Available Not Available No t Available Vitals Date Recorded Body weight Body mass index (BMI) Body height Systolic blood pressure Diastolic blood pressure Provider Name and Address Organization Details Last Updated DateTime 02/11/2022 77234.63 g 31.9 kg/m2 160.02 cm 161 mm[Hg] 58 mm[Hg] Tess Stockton (TERMED) [facility] 13:19:15 Social History Question Answer Notes LastModified by Organizat ion Details LastModified Time Tobacco Smoking Status Never Smoker Tess Stockton (TERMED) [facility], [facility] 02/11/2022 13:16:21 What Is Your Level Of Alcohol Consumption? Occasional Information not available 02/11/2022 Are You Blind Or Do You Have Difficulty Seeing? No Information not available 02/11/2022 Is Blood Transfusion Acceptable In An Emergency? Yes Information not available 02/11/2022 What Is Your Level Of Caffeine Consumption? Moderate Information not available 02/11/2022 Are You Deaf Or Do You Have Serious Difficulty Hearing? No Information not available 02/11/2022 What Type Of Diet Are You Following? REGULAR Information not available 02/11/2022 What Is The Highest Grade Or Level Of School You Have Completed Or The Highest Degree You Have Received? [id number] Information not available 02/11/2022 What Is Your Relationship Status? Information not available 02/11/2022 Do You Use Your Seat Belt Or Car Seat Routinely? Yes Information not available 02/11/2022 Do You Feel Stressed (tense, Restless, Nervous, Or Anxious, Or Unable To Sleep At Night)? [id number] Information not available 02/11/2022 Do You Use Any Illicit Or Recreational Drugs? No Information not available 02/11/2022 Sex: Unknown Functional Status Question Answer Note LastModified by Organizat ion Details LastModified Time Do you have difficulty walking or climbing stairs? No Information not available 02/11/2022 Do you have difficulty doing errands alone? No Information not available 02/11/2022 Do you have difficulty dressing or bathing? No Information not available 02/11/2022 What is your exercise level? Moderate Information not available 02/11/2022 Mental Status Question Answer Note LastModified by Organization D etails LastModified Time Do you have difficulty concentrating, remembering or making decisions? No Information no t available 02/11/2022 Family History Relationship Description Onset Age of this Age Resolved Age Notes LastModified by Organization Details LastModified Time Paternal Grandfather Hypertensive disorder htacker Not available 2021 13:16:20 Paternal Grandfather Heart disease htacker Not available 2021 13:16:20 Father Hereditary disease htacker Not available 2021 13:16:20 Father Heart disease htacker Not available 2021 13:16:20 Father Carcinoma of prostate htacker Not available 2021 13:27:18 Mother Diabetes mellitus htacker Not available 2021 13:16:20 Mother Disorder of thyroid gland htacker Not available 2021 13:16:20 Sister Disorder of thyroid gland htacker Not available 2021 13:16:20 Medical History Condition Response Neurology- Memory Loss/Dementia N Neurology- Stroke/TIA N Dermatology-Acne N Cancer- Genetic Screening N Endocrinology- Vitamin Deficiency N Endocrinology-Other N Hematology-Anemia N Cardiology- Atrial fib/atrial flutter N Nephrology-Renal Disease N Neurology- Seizures/Epilepsy N Cardiology- Heart Attack N Ortho-Fractures N Reviewed with no changes N Neurology- Neuropathy N Endocrinology- Prolactinoma N Urology- Recurrent Urinary Tract Infecti ons N Pulmonary- Seasonal Allergies/Allergic R hinitis Y Psych- PMS/PMDD N Pulmonary-Other N Pulmonary- Lung Disease N Endocrinology- Glucose Intolerance/Insul in Resistance N Psych- Anxiety Disorder N GI- Reflux/Ulcers Y Rheumatology-Arthritis N ID-Chicken Pox/Shingles N Cancer- Skin N GI- Irritable Bowel Syndrome N Cardiology- Heart Disease N ID-HIV N GI- Colon Polyps N Endocrinology- Osteopenia Y Endocrinology- Elevated Prolactin N ID-Other N Psych- Eating Disorder N Ortho- Arthritis N Urology- Urinary Incontinence N Hematology-Blood Transfusion N Pulmonary- Asthma N Urology- Hematuria (Blood in Urine) N Pulmonary- Sleep Apnea N Neurology- Dementia N Urology- Interstitial Cystitis N Endocrinology- Hypothyroidism N Eyes-other N Neurology- Multiple Sclerosis N GI- Hemorrhoids N Neurology-Other N ID- Rheumatic Fever N Hematology-Blood Clotting Disorder/Facto r V Leiden N Endocrinology- Osteoporosis Y Psych- Depression N Hematology-Other N Do you have any current or past medical conditions? N Ortho-Chronic Back Pain N ID- Tuberculosis/Positive PPD N Dermatology-Other N Dermatology-Eczema/Psoriasis N Rheumatology-Autoimmune Disease N Cardiology- High Cholesterol Y Cancer- Ovary N Cardiology- Heart Arrhythmia N Urology- Kidney or Bladder Problems N Psych- Mental Disorder N Psych-other N Hematology-DVT/Pulmonary Embolism N Endocrinology- Hyperthyroidism N Endocrinology- Thyroid Problems N Ortho-other N Other infectious diseases N Cancer- Breast N Psych- ADD N ID- Herpes N GI- Liver Disease/Hepatitis N Weight Management/Obesity Y Cancer- Colon N ENT- Hearing Loss N Cancer- Vulvar N Cancer- Vaginal N GI-Other N Neurology- Headaches/Migraines N Hematology-Bleeding Disorder N Endocrinology- Diabetes N Cancer- Cervical N No diseases or conditions N Pulmonary- COPD/Emphysema N GI- Vitamin Deficiency N GI- Crohn's/Ulcerative Colitis N Endocrinology- History of Gestational Di abetes N Psych- Bipolar Disease N ENT- Seasonal Allergies/Allergic Rhiniti s N Cardiology- High Blood Pressure N Cancer- Lung N Cancer- Endometrial/Uterine N Eyes- Glaucoma N Urology- Kidney Disease N Eyes- Vision Loss/Macular Degeneration N ENT-Other N Rheumatology-Other N Cardiac- Aneurysm N Urology- Kidney Infection N Cardiology- Heart Murmur/Mitral Valve Pr olapse N Urology- Stones N ID-MRSA N Cancer-Other N GI- Gallbladder Disease N Gynecological History Statement/Question Response Total lifetime partners Less than 5 Date of Last Mammogram 07/29/2022 HPV Test Negative Age at Menarche 17 Sexual orientation Heterosexual History of Endometriosis N History of Cervical Dysplasia Y Date of Last Colonoscopy Sexually active N Current Control Method: Abstinence History of Sexually Transmitted Infectio n N History of Infertility N HPV Vaccine Completed Date of last bone density 2019 History of abnormal PAP Y Date of Last Pap Smear 11/03/2019 History of Recurrent Ovarian Cyst N History of Vulvar Dysplasia N History of Fibroids N Obstetrics History GPAL:G 2 P 2 0 0 2 Type Value Multiple Births 0 Full Term 2 Induced 0 Spontaneous 0 Premature 0 Living 2 Ectopics 0 Total 2 Past Encounters Encounter ID Performer Location Encounter Start Date Encounter Closed Date Diagnosis/Indication Diagnosis SNOMED-CT Code Diagnosis ICD10 Code Diagnosis Note [id number] ROHAN SCOTT MD [id number] [place] [address] 02/11/2022 12:48:07 02/11/2022 13:56:55 Gynecologic examination 05375134 Z01.419 Screening for malignant neoplasm of cervix 437172298 Z12.4 Atrophic vaginitis 47111 000 N95.2 Asymptomat ic Health Concerns Section Related Observation LastModified by Organization Detai ls LastModified Time None Recorded Concern Status LastModified by Organization Details LastModified Time None Recorded Advance Directives Directive None Recorded Payers Encounter Date Sequence Insurance Name Policy Number Policy [place] Covered Member ID [place] Member ID Guarantor Name 02/11/2022 1 [place] Sana Lopes [id number] Sana Lopes 02/11/2022 2 [place]: [employer] (PPO) [id number] [id number] Sana Lopes Notes Date Note Type Note Provider Name and Address Organization Details Recorded Time 02/11/2022 text/html Pt present today for annual exam with no complaints.(EC) PAtient with hx of abnormal pap smear and HPV +. Also report cryotherapy ROHAN SCOTT MD [address], [address], [place], [address], [facility] [place] [facility], [facility] 02/11/2022 13:54:06 OBGyn Episode No OBEpisode recorded.
--- NOTE | 2024-09-07 07:23 | A.OFFVIS_ITS ---
Vital Signs 09/07/24 07:37 Height 5 ft 3.5 in Weight 200 lb BMI 34.9 BP 178/80 H Blood Pressure Location Lt brachial Position Sitting Pulse 61 Intake Visit Reasons: 4 month follow up Intake Note: Patient 4 month for GERD. Patient cc: occasional vomiting, GERD, coughing on food as chip, and gassy. Denies any other GI issues for today. Lapel Padder Required: No Accompanied by: Self / Same As Patient Allergies Sulfa (Sulfonamide Antibiotics) Allergy (Unknown, Verified 09/07/24 07:26) Unknown Medication List - Last Reconciled 09/07/24 by Pamela Flores MD escitalopram oxalate (Lexapro) 20 mg PO DAILY 60 days esomeprazole magnesium 20 mg PO DAILY famotidine 20 mg PO BID 30 days fluticasone propionate 50 mcg/actuation (Flonase Allergy Relief) 1 spray intranasal DAILY [id number] 500-416.6-20 mg tabs PO levocetirizine (Xyzal) 5 mg PO QPM PRN losartan 50 mg PO DAILY multivitamin 1 tab PO DAILY red yeast rice 1,200 mg PO DAILY HPI HPI 4 month follow up: Details: GI clinic visit for this 73 YF for FU of GERD, hiatal hernia, multiple gastric polyps and hx of colon polyps TODAY'S VISIT: Patient cc: occasional vomiting, GERD, coughing on food as chip, and gassy. GP started her on Lisinopril for Htn and started coughing. Switched to Losartan 50 mg and cough is better. 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 behind the nose Referred to ENT surgeon Taking Esomeprazole in the am and Famotidine at 8 pm with adequate control of hb Taking Hydrolyzed Collagen powder for joint mosque Moved to [place] from [place] Lost her last Sep and has 2 daughter ([place] and [place]) Scheduled to see Dr Pratibha Titus in [place] in 2023 ([phone]) Pt had hiatal hernia repair with fundoplication 10 yrs ago Complains of coughing after eating spicy foods (like rondon in red wine with onions) Recently diagnosed with sleep apnea and started using a CPAP on Tuesday Having EGD every 6 months Had Colon in 05/23 Pt complains of heartburn and has been taking Esomeprazole 20 mg once a day and trying to reduce it Denies recent change in bowel habits, constipation, diarrhea, black stools or rectal bleeding. Patient admits to a hx of sleep apnea and denies major cardiac or pulmonary problems Denies problems with anesthesia in the past. Denies being on chronic anticoagulation. Takes Flax seed oil and Alleve prn for knee pain. Dad had colon polyps in his 50's or 60's Patient denies known family history of colon cancer or other GI malignancies. She was seeing a Urologist for microscopic hematurea - benign fatty tumor FU Cystoscopy 6 months and then once a year She was prescribed a vaginal insert which she has stopped taking Wt gain due to stress eating in the past and has started exercising at [facility] [employer] : None IMAGING STUDIES: None PAST GI HISTORY BY REVIEW OF MEDICAL RECORDS: 04/2023 EGD showed a moderate sized hiatal hernia and a Schatzki's ring which was dilated to 20 mm with a savory dilator. Fundic gland polyps was ablated with hot biopsy in the gastric body A hyperplastic polyp was removed from the cardia with a hot snare Gastric biopsies were negative for Helicobacter pylori and intestinal metaplasia Pt reports having an EGD every 6 months for FU of multiple gastric polyps 05/2023 Colonoscopy showed external hemorrhoids and recto-sigmoid polyps were ablated [facility] Medical History Schatzki's ring Anxiety Microscopic hematuria Sleep apnea GERD (gastroesophageal reflux disease) Surgical History Hx of cystoscopy History of Parker fundoplication Hx of tonsillectomy Hx of colonoscopy History of esophagogastroduodenoscopy (EGD) Social History Household Members: Family Alcohol intake: current Alcohol intake frequency: holidays/special occasions only Patient Tobacco Use Status: Never used Tobacco Review of Systems Const All systems reviewed & are unremarkable except as noted in HPI and below Physical Exam Vital Signs: Last Vital Signs Pulse 61 09/07/24 07:37 BP 178/80 H 09/07/24 07:37 BMI result Body Mass Index 34.9 Const General: healthy appearing, no acute distress and anxious Nutritional Appearance: obese Orientation/consciousness: patient oriented x3 Limitations: no limitations HEENT Head: Yes normal to inspection Ears: hearing grossly normal bilaterally Eyes Sclerae: sclerae normal Pupils: Equal, round and reactive pupils present Neck Neck: Yes normal visual inspection Chest Chest palpation & inspection: normal inspection of the chest Resp Effort & Inspection: normal respiratory effort Auscultation: clear to auscultation bilaterally Cardio Palpation: normal PMI Rate: regular rate Rhythm: regular rhythm Heart sounds: S1 normal heart sound present, S2 normal heart sound present and no murmurs GI Palpation (GI): Soft to palpation, nontender and No hepatosplenomegaly present Auscultation: normal bowel sounds Rectal Exam - Female: deferred Skin General skin exam: no rashes or lesions noted Neuro General: patient oriented x3, gait normal and moves all extremities Cranial nerves: Yes Equal, round and reactive pupils present Psych Appearance: grossly normal Mental Status: mental status grossly normal Assessment & Plan Assessment & Plan (1) GERD (gastroesophageal reflux disease): Code(s): K21.9 - Gastro-esophageal reflux disease without esophagitis Category: Medical (2) Hyperplastic polyps of stomach: Code(s): K31.7 - Polyp of stomach and duodenum Category: Medical (3) Hiatal hernia: Code(s): K44.9 - Diaphragmatic hernia without obstruction or gangrene Category: Medical (4) History of colon polyps: Code(s): Z86.010 - Personal history of colon polyps Category: Medical Plan 73 YF for FU of GERD, hiatal hernia, multiple gastric polyps, colon polyps, anxiety and sleep apnea 04/2023 EGD showed a moderate sized hiatal hernia and a Schatzki's ring which was dilated to 20 mm with a savory dilator. Fundic gland polyps was ablated with hot biopsy in the gastric body A hyperplastic polyp was removed from the cardia with a hot snare Gastric biopsies were negative for Helicobacter pylori and intestinal metaplasia Pt reports having an EGD every 6 months for FU of multiple gastric polyps (some polyps were hyperplastic on biopsy) 05/2023 Colonoscopy showed external hemorrhoids and rectosigmoid polyps were ablated (no path available) Pt was advised to take Famotidine 20 mg twice daily 02/27/24 EGD was performed for FU of gastric polyps and showed a large hiatal hernia 30 to 35 cms, a 1 cms segment of suspected Lujan's from 29 to 30 cms, focal esophagitis at 29 cms, . Gastritis and multiple gastric polyps BIOPSIES A. Stomach, antrum, biopsy: Antral-type mucosa with mild chronic inactive inflammation; no Helicobacter organisms seen. B. Stomach, polyp: Fundic gland polyp with background mild chronic inactive inflammation; no Helicobacter organisms seen. C. Esophagus, distal, biopsy: - Cardiofundic-type mucosa with moderate chronic active inflammation; no fully- developed intestinal metaplasia seen. - No squamous epithelium identified 05/03/24 Taking Esomeprazole in the am and Famotidine at 8 pm with adequate control of hb Advised to take an extra Famotidine 1 hour before taking spicy foods Pt will be scheduled for an EGD in 1 year (FU of hyperplastic gastric polyps) She will be due for a colonoscopy in 05/2028 for follow-up of colon polyp 09/07/24 Switch to Pantoprazole 40 mg daily for GERD (due to insurance coverage) Pt advised to call if symptoms not controlled with Pantoprazole Schedule EGD in January, - FU of gastric polyps FU in 4 months Medications: New pantoprazole 40 mg PO DAILY 30 days 30 tabs 5RF K21.9 - Gastro-esophageal reflux disease without esophagitis Coding Level of Care Code Est Pt Level 4 (16024) Diagnoses GERD (gastroesophageal reflux disease) K21.9 Hyperplastic polyps of stomach K31.7 Hiatal hernia K44.9 History of colon polyps Z86.010 Time Spent (min) 21
== END | disposition home or self-care (01) ==
PROVIDERS: PCP Student in an Organized Health Care Education/Training Program; Visit Provider Internal Medicine Gastroenterology
CPT/HCPCS: 99214

== ENCOUNTER → 2024-09-07 07:11 | Outpatient (BNVA) | payer MEDICARE, BC, SELFPAY | PROVIDERS: PCP Student in an Organized Health Care Education/Training Program; Visit Provider Internal Medicine Gastroenterology | DX: K21.9 Gastro-esophageal reflux disease without esophagitis (principal); K31.7 Polyp of stomach and duodenum; K44.9 Diaphragmatic hernia without obstruction or gangrene; Z86.0109 Personal history of other colon polyps | CPT/HCPCS: 99212 ==

== ENCOUNTER 2025-02-11 08:37 | Day surgery (SDC) | payer MEDICARE, BC, SELFPAY ==
--- OUTSIDE RECORDS SUMMARY | 2025-01-11 13:25 | XMS_ITS | Patient Health Record ---
Author Organization [facility] [place] Address [address] [address] Care Team Providers Care Organic Chemist Name Role Phone Tino Jarrett Primary Care Provider [phone] Allergies Allergen (clinical drug ingredient) Drug/Non Drug Allergy documented on EMR Reaction Allergy Type Onset Date Status Shellfish (FN) Shrimp anaphylaxis Drug Allergy Active Substance with sulfonamide structure and antibacterial mechanism of action (substance) Sulfa childhood reaction Drug Allergy Active Reason For Referral No Information Medications Medication SIG (Take, Route, Frequency, Duration) Notes Start Date End Date Status Esomeprazole Magnesium 40 MG 1 capsule Orally Once a day for 30 days Active Calcium Citrate-Vitamin D 500-400 MG-UNIT 2 tablet Orally Twice a day *Pick strength-form from [facility] for eRX* Unknown ProAir HFA 108 (90 Base) MCG/ACT 2 puffs as needed Inhalation every 4 hrs *Reorder from [facility] for eRx and Interaction Alerts* 12/28/2018 Unknown Escitalopram Oxalate 20 MG 1 tablet Orally Once a day for 30 days Active ZyrTEC Allergy 10 MG 1 tablet Orally Once a day Unknown Azelaic Acid 15 % 1 application Externally Twice a day Unknown Flaxseed (Linseed) 1000 MG Orally Unknown Clobetasol Propionate 0.05 % 1 application Externally Twice a day for 14 day(s) Unknown Calcium 600 MG 1 Tablet Orally Twice a day Unknown Estradiol 10 MCG 1 _insert Vaginal Two times a Week for 90 days *Pick strength-form from [facility] for eRX* Active Vitamin D-3 1000 UNIT 4 capsules Orally Once a day *Pick strength-form from [employer] for eRX* Unknown Multivitamin Adult - 1 Tablet Orally Once a day Unknown Red Yeast Rice 600 MG 1 Tablet Orally Twice a day Unknown Immunizations Vaccine Route Administration Date Status Comme nts COVID Unknown 08/14/2020 Administered COVID Unknown 09/04/2020 Administered COVID Unknown 05/04/2021 Administered FLU AD High Dose IM Intramuscular 04/20/2021 Administered tolerated inj well FLU AD High Dose IM Intramuscular 04/08/2023 Administered Pt tolerated well. Flu Shot Afluria IM Intramuscular 04/06/2018 Administered Flu Shot Afluria IM Intramuscular 03/23/2020 Administered FLUCELVAX (cc11V4) IM Intramuscular 05/26/2017 Administere d Pfizer Bivalent Unknown 04/22/2022 Administered pneumococcal 13-valent conjugate vaccine Unknown 10/01/2013 Administered Immunization Given by from source eCW:: pneumococcal 13-valent conjugate vaccine Unknown 12/10/2014 Administered Immunization Given by from source eCW:: Td (adult) preservative free Unknown 05/26/2009 Pending Immunization Given by from source eCW:: Td (adult) preservative free IM Intramuscular 01/22/2023 Administered pt tolerated well Zostavax Shingles Unknown 01/06/2015 Administered Immun ization Given by from source eCW:: Zostavax Shingles Unknown 05/26/2015 Pending Immuniz ation Given by from source eCW:: Problems Problem Type SNOMED Code ICD Code Onset Dates Problem Status W/U Status Risk Notes Problem 88546431 Age-related osteoporosis without current pathological fracture (M81.0) Active confirmed Problem 20944284 Vitamin D defici ency (E55.9) Active confirmed Problem Obstructive sleep apnea (62796712) Obstructive sleep apnea (G47.33) Active confirmed Problem Gastroesophageal reflux disease (disorder) (974426092) Chronic GERD (K21.9) Active confirmed Problem Daytime somnolence (494625452910) Daytime somnolence (R40.0) Active confirmed Problem 711704193 GERD (gastroesophageal reflux disease) (K21.9) Active confirmed Problem Morbid obesity (408225316) Morbid obesity (E66.01) Active confirmed Problem Obese class I (200307399728771) BMI 33.0-33.9,adult (Z68.33) Active confirmed Problem Periodic limb movement disorder (460595506) Periodic limb movement (G47.61) Active confirmed Problem 866500163 Hypercholesterem ia (E78.00) Active confirmed Problem 000704191 Allergy to polle n (J30.1) Active confirmed Problem COPD - Chronic obstructive pulmonary disease (38432344) COPD (J44.9) Active confirmed SU, on pro-ai r Problem Mild major depression, single episode (87830783) Major depression single (F32.0) Active confirmed Plan Of Treatment Pending Test Test Name Order Date DEXA Hip and Spine 04/15/2020 Future Test Test Name Order Date SENOBRIGHT ARMINDA 08/08/2019 Insurance Providers Payer Name Payer Address Payer Phone Subscriber Number Group Number Insured Name Patient Relationship to Insured Coverage Start Date Coverage End Date MEDICARE [address] [place] [phone] [id number] Sana Lopes Self - patient is the insured 7 Medical (General) History Medical History History ICD Code GERD (gastroesophageal reflux disease) K 21.9 Hypercholesteremia E78.00 Allergy to pollen J30.1 Microscopic hematuria R31.29 Age-related osteoporosis without current pathological fracture M81.0 Vitamin D deficiency E55.9 Chronic GERD K21.9 Microscopic hematuria R31.29 Chronic GERD K21.9 Chronic GERD Surgical History Surgery Date(Month/Year) colonoscopy 2020 EGD 2020 tonsillectomy and adenoidectomy Hernia Repair hiatal with fundoplication 08/2016 Hospitalization History Reason Date(Month/Year) as above
[2025-02-07 09:42] VITALS: BMI 35.4
--- NOTE | 2025-02-08 09:57 | HO.ANESPROP2 ---
Documented by User: Estrella Telles NP 02/08/25 09:57 HPI - Anesthesia Eval Consult details Narrative: 74yo F for Upper Endoscopy PMFSH Active Problems Active Problems: All Active Problems History of colon polyps (Acute) Hiatal hernia (Acute) Hyperplastic polyps of stomach (Acute) Fundic gland polyps of stomach, benign (Acute) Anxiety (Acute) GERD (gastroesophageal reflux disease) (Acute) Past Medical History Medical History Allergies HTN (hypertension) OSIRIS (obstructive sleep apnea) Hiatal hernia Schatzki's ring Anxiety Microscopic hematuria GERD (gastroesophageal reflux disease) Surgical History Surgical History (Updated 02/11/25 @ 08:56 by Sarah Craig RN) Hx of cystoscopy History of Parker fundoplication Hx of tonsillectomy Hx of colonoscopy History of esophagogastroduodenoscopy (EGD) History of Problems with Anesthesia: No Social History Social History Household Members: Family Alcohol intake: current Alcohol intake frequency: holidays/special occasions only Patient Tobacco Use Status: Never used Tobacco Use of substances other than those prescribed or required for medical reasons: No Are you DNR?: No Advance Directives: No Advance Directives Information Provided: Yes Meds Allergies Allergy/AdvReac Type Severity Reaction Status Date / Time Sulfa (Sulfonamide Allergy Unknown Unknown Verified 02/11/25 08:54 Antibiotics) Home Medications ?Medication ?Instructions ?Recorded ?Confirmed ?Last Taken ?Type fluticasone propionate 50 1 spray intranasal DAILY 05/03/24 02/07/25 02/11/25 07:45 History mcg/actuation nasal spray,suspension (Flonase Allergy Relief) glucosamine 500 iu-yyelklmis-dhq 1 tab PO DAILY 05/03/24 02/07/25 Unknown History no1 416.6 mg-C 20 bu-qkmq-cbyj tablet levocetirizine 5 mg tablet (Xyzal) 5 mg PO QPM PRN allergies 05/03/24 02/07/25 Unknown History multivitamin 1 tab PO DAILY 05/03/24 02/07/25 Unknown History red yeast rice 600 mg capsule 1,200 mg PO DAILY 05/03/24 02/07/25 Unknown History losartan 50 mg tablet 50 mg PO DAILY 09/07/24 02/07/2525 07:45 History amlodipine 10 mg tablet 10 mg PO DAILY 02/11/25 02/11/25 02/11/25 07:45 History azelaic acid 15 % topical gel topical DAILY 02/11/25 Unknown History cholecalciferol (vitamin D3) 25 25 mcg PO DAILY 02/11/25 02/11/25 Unknown History mcg (1,000 unit) tablet (Vitamin D3) clobetasol 0.05 % scalp solution topical 02/11/25 Unknown History Exam Height,Weight and Vital Signs: Height 5 ft 3 in Weight 90.718 kg Assessment and Plan Final Anesthetic Review History of Problems with Anesthesia: No Documented by User: Isaías Duran MD 02/11/25 10:40 [facility] Past Medical History Medical History Allergies HTN (hypertension) OSIRIS (obstructive sleep apnea) Hiatal hernia Schatzki's ring Anxiety Microscopic hematuria GERD (gastroesophageal reflux disease) Family History Family history of problems with anesthesia: No Surgical History Surgical History (Updated 02/11/25 @ 08:56 by Sarah Craig RN) Hx of cystoscopy History of Parker fundoplication Hx of tonsillectomy Hx of colonoscopy History of esophagogastroduodenoscopy (EGD) Social History Social History Household Members: Family Alcohol intake: current Alcohol intake frequency: holidays/special occasions only Patient Tobacco Use Status: Never used Tobacco Use of substances other than those prescribed or required for medical reasons: No Are you DNR?: No Advance Directives: No Advance Directives Information Provided: Yes Meds Allergies Allergy/AdvReac Type Severity Reaction Status Date / Time Sulfa (Sulfonamide Allergy Unknown Unknown Verified 02/11/25 08:54 Antibiotics) Home Medications ?Medication ?Instructions ?Recorded ?Confirmed ?Last Taken ?Type fluticasone propionate 50 1 spray intranasal DAILY 05/03/24 02/07/2502/11/25 07:45 History mcg/actuation nasal spray,suspension (Flonase Allergy Relief) glucosamine 500 ze-njtlkkcaw-ykm 1 tab PO DAILY 05/03/24 02/07/25 Unknown History no1 416.6 mg-C 20 zm-uvuc-mqis tablet levocetirizine 5 mg tablet (Xyzal) 5 mg PO QPM PRN allergies 05/03/24 02/07/25 Unknown History multivitamin 1 tab PO DAILY 05/03/24 02/07/25 Unknown History red yeast rice 600 mg capsule 1,200 mg PO DAILY 05/03/24 02/07/25 Unknown History losartan 50 mg tablet 50 mg PO DAILY 09/07/24 02/07/25 02/11/25 07:45 History amlodipine 10 mg tablet 10 mg PO DAILY 02/11/25 02/11/25 02/11/25 07:45 History azelaic acid 15 % topical gel topical DAILY 02/11/25 Unknown History cholecalciferol (vitamin D3) 25 25 mcg PO DAILY 02/11/25 02/11/25 Unknown History mcg (1,000 unit) tablet (Vitamin D3) clobetasol 0.05 % scalp solution topical 02/11/25 Unknown History Exam Airway Mallampati Class: II TM Dist: <=3cm Neck ROM: Full Loose/Missing/Broken Teeth: Yes Heart: ok Lungs: ok Assessment and Plan Assessment Anesthesia Assessment: Anesthesia Plan Discussed and Chart Reviewed Final Anesthetic Review Family History of Problems with Anesthesia: No NPO: Yes ASA Class: III Final Preanesthetic Review: No Changes in Pt Med Stat, Meds/Allgs Chart Reviewed, Consent Obtained/Reviewed and Anes Risks/Benef Reviewed Patient Risk: Intermediate Procedure Risk: Intermediate Anesthetic Plan Anesthetic Plan: Agree w/ Assess. and Plan and TIVA Disposition: Standard PACU
[2025-02-11 08:56] VITALS: BMI 36.0
[2025-02-11 09:02] VITALS: BP 142/60; PULSE 56; RESP 16; TEMP 36.4; O2SAT 95
[2025-02-11] MEDS: Lactated Ringers 1,000 ML 100 ML IVCONT (09:21)
--- NOTE | 2025-02-11 09:29 | MHC.SHP ---
Pre-Procedural Eval Section A - 24 Hr Update-Section A only Date of Service: 02/11/25 The patient is an INPATIENT: No The patient has been examined within 24 hours of the surgical procedure. The History & Physical has been completed within 30 days and I have reviewed it.: No Section B - Complete if H&P > 30 days Chief Complaint: Follow-up of multiple gastric polyps Relevant Family History (Specify if Yes): No Relevant Social History: None Present Medications: see Short Stay Collaborative assessment Medical History: Significant History (Schatzki's ring Anxiety Microscopic hematuria Sleep apnea GERD (gastroesophageal reflux disease)) History of Previous Operations: Relevant previous surgery/procedure and date(s) (Hx of cystoscopy History of Parker fundoplication Hx of tonsillectomy Hx of colonoscopy History of esophagogastroduodenoscopy (EGD)) Allergies: Allergies Allergy/AdvReac Type Severity Reaction Status Date / Time Sulfa (Sulfonamide Allergy Unknown Unknown Verified 02/11/25 08:54 Antibiotics) Review of Systems Sugical H&P ROS: Negative: Constitution, Cardiovascular, Respiratory and Gastrointestinal Exam Surgical H&P Exam: Normal: Heart, Normal: Lungs, Normal: Extremities and Normal: Abdomen Plan Diagnosis/Plan: Unchanged I have reviewed the history and physical and performed a pertinent physical examination on my patient. No changes have occurred unless specified. Time Spent With Patient Time: Total time managing care of this patient today ____ minutes.
--- NOTE | 2025-02-11 11:08 | P.OP_ITS ---
Operative Note Operative Note Date of Service: 02/11/25 Narrative: FLEXIBLE TRANSORAL UPPER GASTROINTESTINAL ENDOSCOPY WITH SNARE POLYPECTOMY Pre-op diagnosis: Follow-up of multiple gastric polyps, GERD, Post-op diagnosis: Multiple gastric polyps, hiatal hernia, GERD Endoscopist:? Pamela Flores MD Anesthesia:?MAC UPPER ENDOSCOPY Consent: Indications for the procedure and potential complications of bleeding, perforation, reaction to medications and missed diagnosis were discussed with the patient and informed consent was obtained. Instrument: Olympus GIF H 190 mid size upper endoscope Monitoring: Vital signs and clinical assessment, continuous EKG monitoring, Pulse oximetry, Carbon Dioxide monitoring and blood pressure monitoring were done throughout the procedure. Pt desaturated to O2 saturation in the 30's due to laryngospasm and recovered with bagging. Procedure: The patient was placed in the left lateral decubitis position and pre-procedure medications were administered and a bite block was placed. The endoscope was inserted into the mouth and advanced under direct vision to the third part of duodenum. A careful inspection was made as the upper endoscope was withdrawn including a retroflexed examination of the proximal stomach; Findings and interventions are described below. Findings: Larynx: Normal Esophagus: GE junction at 30 cms, large hiatal hernia 30 to 35 cms. An 18 to 20 mm hemorrhagic appearing polyp in the HH sac. Polyp was removed with a hot snare and retrieved with a Crowe net. Stomach: Multiple 5 to 18 mm benign appearing gastric polyps in the body and f undus. One 18 mm polyp was removed with a hot snare and polyp was retrieved with a Crowe net. Grade 4 flap valve on retroflexed examination of the cardia. Duodenum: Not examined Intervention: Biopsies as noted above Impression and Post Procedure Diagnosis: Endoscopy Findings: ESOPHAGUS: Large hiatal hernia 30 to 35 cms. An 18 to 20 mm hemorrhagic appearing polyp in the HH sac. Polyp was removed with a hot snare and retrieved with a Crowe net. STOMACH: Multiple 5 to 18 mm benign appearing gastric polyps in the body and fundus. One 18 mm polyp was removed with a hot snare and polyp was retrieved with a Crowe net. DUODENUM: Not examined Plan: Pt has a FU appointment on 02/28/[address] Flores. Repeat EGD in 6 months (Needs 60 min procedure time with GA) Above findings were reviewed with the patient and relevant handouts were given and the discharge area. BIOPSIES SHOWED: A. Stomach, polypectomy: Fundic gland polyp with background moderate chronic inactive inflammation; no Helicobacter organisms seen. B. Hiatal hernia sac, polypectomy: Hyperplastic mucosal polyp, markedly inflamed and eroded; no Helicobacter organisms see
[2025-02-11 11:15] VITALS: BP 94/58; PULSE 63; RESP 20; TEMP 36.8; O2SAT 93
[2025-02-11 11:30] VITALS: BP 126/57; PULSE 54; RESP 20; TEMP 36.6; O2SAT 95
== END 2025-02-11 12:28 | disposition home or self-care (01) ==
PROVIDERS: PCP Student in an Organized Health Care Education/Training Program; Visit Provider Internal Medicine Gastroenterology
PROC: 0DJ08ZZ Inspection of Upper Intestinal Tract, Via Natural or Artificial Opening Endoscopic (ICD-10-PCS; CPT 43235; principal; 2025-02-11 10:20)
DX: K21.9 Gastro-esophageal reflux disease without esophagitis (principal); K31.7 Polyp of stomach and duodenum; K44.9 Diaphragmatic hernia without obstruction or gangrene; I10 Essential (primary) hypertension; G47.33 Obstructive sleep apnea (adult) (pediatric); Z79.899 Other long term (current) drug therapy
CPT/HCPCS: 43251; 43239; 88305; 88313; 88342; J2003; J2704

== ENCOUNTER → 2025-02-11 08:37 | Outpatient (BNV) | payer MEDICARE, BC, SELFPAY | PROVIDERS: PCP Student in an Organized Health Care Education/Training Program; Visit Provider Internal Medicine Gastroenterology | DX: K21.9 Gastro-esophageal reflux disease without esophagitis (principal); K31.7 Polyp of stomach and duodenum | CPT/HCPCS: 43251 ==

== ENCOUNTER 2025-02-28 13:27 | Outpatient (AMB) | payer MEDICARE, BC, SELFPAY ==
--- NOTE | 2025-02-28 13:33 | A.OFFVIS_ITS ---
Vital Signs 02/28/25 13:35 Height 5 ft 3 in Weight 200 lb BMI 35.4 BP 122/62 Blood Pressure Location Lt brachial Position Sitting Pulse 58 Pulse Oximetry (%) 93 Oxygen Delivery Method Room Air Intake Visit Reasons: s/p EGD Intake Note: Patient follow up for GERD and EGD results. Patient cc: GERD in better with medication, denies any other GI issues. Automobile Mechanic Motor Required: No Accompanied by: Self / Same As Patient Allergies Sulfa (Sulfonamide Antibiotics) Allergy (Unknown, Verified 02/28/25 13:37) Unknown Medication List - Last Reconciled 02/28/25 by Pamela Flores MD amlodipine 10 mg PO DAILY azelaic acid 15% topical DAILY cholecalciferol (vitamin D3) (Vitamin D3) 25 mcg PO DAILY clobetasol 0.05% topical cromolyn (Nasalcrom) 1 spray intranasal TID escitalopram oxalate (Lexapro) 20 mg PO DAILY 60 days esomeprazole magnesium 20 mg PO DAILY 90 days famotidine 20 mg PO BID 30 days fluticasone propionate 50 mcg/actuation (Flonase Allergy Relief) 1 spray intranasal DAILY icmbgjwl-wvjg-jjp8-C-mana-bosw 500-416.6-20 mg 1 tab PO DAILY levocetirizine (Xyzal) 5 mg PO QPM PRN losartan 100 mg PO DAILY multivitamin 1 tab PO DAILY red yeast rice 1,200 mg PO DAILY HPI HPI s/p EGD: Details: GI clinic visit for this 74 YF for FU of GERD, hiatal hernia, multiple gastric polyps and hx of colon polyps TODAY'S VISIT: Patient cc: Patient cc: GERD in better with medication, denies any other GI issues EGD results reviewed Notes GERD symptoms are controlled with esomeprazole every morning and Famotidine at night prn EGD results reviewed with the patient PAST VISITS: GP started her on Lisinopril for Htn and started coughing. Switched to Losartan 50 mg and cough is better. 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 behind the nose Referred to ENT surgeon Taking Esomeprazole in the am and Famotidine at 8 pm with adequate control of hb Taking Hydrolyzed Collagen powder for joint jew Moved to [place] from [place] Lost her last Sep and has 2 daughter (Bj and Milind Wiggins) Scheduled to see Dr Pratbiha Titus in [place] in 2023 ([phone]) Pt had hiatal hernia repair with fundoplication 10 yrs ago Complains of coughing after eating spicy foods (like rondon in red wine with onions) Recently diagnosed with sleep apnea and started using a CPAP on Tuesday Having EGD every 6 months Had Colon in 05/23 Pt complains of heartburn and has been taking Esomeprazole 20 mg once a day and trying to reduce it Denies recent change in bowel habits, constipation, diarrhea, black stools or rectal bleeding. Patient admits to a hx of sleep apnea and denies major cardiac or pulmonary problems Denies problems with anesthesia in the past. Denies being on chronic anticoagulation. Takes Flax seed oil and Alleve prn for knee pain. Dad had colon polyps in his 50's or 60's Patient denies known family history of colon cancer or other GI malignancies. She was seeing a Urologist for microscopic hematurea - benign fatty tumor FU Cystoscopy 6 months and then once a year She was prescribed a vaginal insert which she has stopped taking Wt gain due to stress eating in the past and has started exercising at [facility] [place] [address] Cases Live : None IMAGING STUDIES: None PAST GI HISTORY BY REVIEW OF MEDICAL RECORDS: 04/2023 EGD showed a moderate sized hiatal hernia and a Schatzki's ring which was dilated to 20 mm with a savory dilator. Fundic gland polyps was ablated with hot biopsy in the gastric body A hyperplastic polyp was removed from the cardia with a hot snare Gastric biopsies were negative for Helicobacter pylori and intestinal metaplasia Pt reports having an EGD every 6 months for FU of multiple gastric polyps 05/2023 Colonoscopy showed external hemorrhoids and recto-sigmoid polyps were ablated [facility] Medical History Allergies HTN (hypertension) OSIRIS (obstructive sleep apnea) Hiatal hernia Schatzki's ring Anxiety Microscopic hematuria GERD (gastroesophageal reflux disease) Surgical History Hx of cystoscopy History of Parker fundoplication Hx of tonsillectomy Hx of colonoscopy History of esophagogastroduodenoscopy (EGD) Social History Household Members: Family Alcohol intake: current Alcohol intake frequency: holidays/special occasions only Patient Tobacco Use Status: Never used Tobacco Review of Systems Const All systems reviewed & are unremarkable except as noted in HPI and below Physical Exam Vital Signs: Last Vital Signs Pulse 58 02/28/25 13:35 BP 122/62 02/28/25 13:35 Pulse Ox 93 02/28/25 13:35 Oxygen Delivery Method Room Air 02/28/25 13:35 BMI result Body Mass Index 35.4 Const General: healthy appearing, no acute distress and anxious Nutritional Appearance: obese Orientation/consciousness: patient oriented x3 Limitations: no limitations HEENT Head: Yes normal to inspection Ears: hearing grossly normal bilaterally Eyes Sclerae: sclerae normal Pupils: Equal, round and reactive pupils present Neck Neck: Yes normal visual inspection Chest Chest palpation & inspection: normal inspection of the chest Resp Effort & Inspection: normal respiratory effort Auscultation: clear to auscultation bilaterally Cardio Palpation: normal PMI Rate: regular rate Rhythm: regular rhythm Heart sounds: S1 normal heart sound present, S2 normal heart sound present and no murmurs GI Palpation (GI): Soft to palpation, nontender and No hepatosplenomegaly present Auscultation: normal bowel sounds Rectal Exam - Female: deferred Skin General skin exam: no rashes or lesions noted Neuro General: patient oriented x3, gait normal and moves all extremities Cranial nerves: Yes Equal, round and reactive pupils present Psych Appearance: grossly normal Mental Status: mental status grossly normal Assessment & Plan Assessment & Plan (1) GERD (gastroesophageal reflux disease): Code(s): K21.9 - Gastro-esophageal reflux disease without esophagitis Category: Medical (2) Hyperplastic polyps of stomach: Code(s): K31.7 - Polyp of stomach and duodenum Category: Medical (3) Hiatal hernia: Code(s): K44.9 - Diaphragmatic hernia without obstruction or gangrene Category: Medical (4) History of colon polyps: Code(s): Z86.010 - Personal history of colon polyps Category: Medical Plan 74 YF for FU of GERD, hiatal hernia, multiple gastric polyps, colon polyps, anxiety and sleep apnea 04/2023 EGD showed a moderate sized hiatal hernia and a Schatzki's ring which was dilated to 20 mm with a savory dilator. Fundic gland polyps was ablated with hot biopsy in the gastric body A hyperplastic polyp was removed from the cardia with a hot snare Gastric biopsies were negative for Helicobacter pylori and intestinal metaplasia Pt reports having an EGD every 6 months for FU of multiple gastric polyps (some polyps were hyperplastic on biopsy) 05/2023 Colonoscopy showed external hemorrhoids and rectosigmoid polyps were ablated (no path available) Pt was advised to take Famotidine 20 mg twice daily 02/27/24 EGD was performed for FU of gastric polyps and showed a large hiatal hernia 30 to 35 cms, a 1 cms segment of suspected Lujan's from 29 to 30 cms, focal esophagitis at 29 cms, . Gastritis and multiple gastric polyps BIOPSIES A. Stomach, antrum, biopsy: Antral-type mucosa with mild chronic inactive inflammation; no Helicobacter organisms seen. B. Stomach, polyp: Fundic gland polyp with background mild chronic inactive inflammation; no Helicobacter organisms seen. C. Esophagus, distal, biopsy: - Cardiofundic-type mucosa with moderate chronic active inflammation; no fully- developed intestinal metaplasia seen. - No squamous epithelium identified 05/03/24 Taking Esomeprazole in the am and Famotidine at 8 pm with adequate control of hb Advised to take an extra Famotidine 1 hour before taking spicy foods She will be due for a colonoscopy in 05/2028 for follow-up of colon polyp 09/07/24 Switch to Pantoprazole 40 mg daily for GERD (due to insurance coverage) Pt advised to call if symptoms not controlled with Pantoprazole 02/11/25 EGD SHOWED: Esophagus: GE junction at 30 cms, large hiatal hernia 30 to 35 cms. An 18 to 20 mm hemorrhagic appearing polyp in the HH sac. Polyp was removed with a hot snare and retrieved with a Crowe net. Stomach: Multiple 5 to 18 mm benign appearing gastric polyps in the body and fundus. One 18 mm polyp was removed with a hot snare and polyp was retrieved with a Crowe net. BIOPSIES SHOWED: A. Stomach, polypectomy: Fundic gland polyp with background moderate chronic inactive inflammation; no Helicobacter organisms seen. B. Hiatal hernia sac, polypectomy: Hyperplastic mucosal polyp, markedly inflamed and eroded; no Helicobacter organisms seen Pt will be scheduled for an EGD in 6 months with GA (FU of hyperplastic gastric polyps) FU in 6 months Coding Level of Care Code Est Pt Level 3 (52682) Diagnoses GERD (gastroesophageal reflux disease) K21.9 Hyperplastic polyps of stomach K31.7 Hiatal hernia K44.9 History of colon polyps Z86.010 Time Spent (min) 17
[2025-02-28 13:35] VITALS: BP 122/62; PULSE 58; O2SAT 93; BMI 35.4
--- OUTSIDE RECORDS SUMMARY | 2025-02-28 13:40 | XMS_ITS | Patient Health Record ---
Author Organization [facility] Address [address] [place] [address] Care Team Providers Care Hospital Secretary Name Role Phone Tino Jarrett Primary Care Provider [phone] Allergies Allergen (clinical drug ingredient) Drug/Non Drug Allergy documented on EMR Reaction Allergy Type Onset Date Status Shellfish (FN) Shrimp (uncoded) anaphylaxis Allergy Active Substance with sulfonamide structure and antibacterial mechanism of action (substance) Sulfa (uncoded) childhood reaction Allergy Active Reason For Referral No Information Medications Medication SIG (Take, Route, Frequency, Duration) Notes Start Date End Date Status Estradiol 10 MCG 1 _insert Vaginal Tw o times a Week; Duration: 90 days Active ProAir HFA 108 (90 Base) MCG/ACT 2 puffs as needed Inhalation every 4 hrs 12/28/2018 Unknown ZyrTEC Allergy 10 MG 1 tablet Orally Onc e a day Unknown Vitamin D-3 1000 UNIT 4 capsules Orally Once a day Unknown Multivitamin Adult - 1 Tablet Orally Onc e a day Unknown Azelaic Acid 15 % 1 application Acid Loader ally Twice a day Unknown Red Yeast Rice 600 MG 1 Tablet Orally Tw ice a day Unknown Flaxseed (Linseed) 1000 MG Orally Unknown Clobetasol Propionate 0.05 % 1 application Externally Twice a day; Duration: 14 day(s) Unknown Escitalopram Oxalate 20 MG 1 tablet Oral ly Once a day; Duration: 30 days Active Calcium 600 MG 1 Tablet Orally Twic e a day Unknown Esomeprazole Magnesium 40 MG 1 capsule Orally Once a day; Duration: 30 days Active Calcium Citrate-Vitamin D 500-400 MG-UNIT 2 tablet Orally Twice a day Unknown Immunizations Vaccine Route Administration Date Status Comme nts ZZZZZZZShingles Unknown 01/06/2015 Administered Zoster Unknown 05/26/2015 Pending Td (Tetanus & Dipththeria) absorbed, preservative free IM Intramuscular 01/22/2023 Administered pt tolerated well Td (adult) preservative free Unknown 05/26/2009 Pending Prevnar 13 Unknown 12/10/2014 Administered Pneumococcal vaccine Unknown 10/01/2013 Administered Pfizer Bivalent Unknown 04/22/2022 Administered Pfizer Bivalent Unknown 04/22/2022 Administered FLUAD HD Flu IM Intramuscular 04/20/2021 Administered tole rated inj well FLUAD HD Flu IM Intramuscular 04/08/2023 Administered Pt t olerated well. Flu Shot, Flucelvax IM Intramuscular 05/26/2017 Administer ed Flu Shot, Afluria IM Intramuscular 04/06/2018 Administered Flu Shot, Afluria IM Intramuscular 03/23/2020 Administered COVID-19, mRNA Pfizer Dose #1 Unknown 08/14/2020 Administered COVID-19, mRNA Pfizer Dose #1 Unknown 09/04/2020 Administered COVID-19, mRNA Pfizer Dose #1 Unknown 05/04/2021 Administered Social History Tobacco Use: Social History Observation Description Date Details (start date - stop date) Never Smoker NA - NA Tobacco Use/Smoking Question Answer Notes Are you a nonsmoker Additional Findings: Tobacco Non-User Current no n-smoker Alcohol Screen (Audit-C) Question Answer Notes Did you have a drink contain ing alcohol in the past year? Yes How often did you have a dri nk containing alcohol in the past year? Monthly or less (1 point) How many drinks did you have on a typical day when you were drinking in the past year? 1 or 2 drinks (0 point) How often did you have 6 or more drinks on one occasion in the past year? Never (0 point) Points 1 Interpretation Negative Problems Problem Type SNOMED Code ICD Code Onset Dates Problem Status W/U Status Risk Notes Problem Age-related osteoporosis (969772317) Age-related osteoporosis without current pathological fracture (M81.0) Active confirmed Problem Mild major depressio n, single episode (80148287) Major depression single (F32.0) Active confirmed Problem Morbid obesity (638614041) Morbid obesity (E66.01) Active confirmed Problem Vitamin D deficiency (33861752) Vitamin D deficiency (E55.9) Active confirmed Problem Gastroesophageal reflux disease (694766269) GERD (gastroesophageal reflux disease) (K21.9) Active confirmed Problem Obstructive sleep apnea (84458897) Obstructive sleep apnea (G47.33) Active confirmed Problem Gastroesophageal reflux disease (disorder) (174889533) Chronic GERD (K21.9) Active confirmed Problem COPD - Chronic obstructive pulmonary disease (95839703) COPD (J44.9) Active confirmed SU, on pro-ai r Problem Daytime somnolence (463492459513) Daytime somnolence (R40.0) Active confirmed Problem Obese class I (929226839045237) BMI 33.0-33.9,adult (Z68.33) Active confirmed Problem Periodic limb moveme nt disorder (375925630) Periodic limb movement (G47.61) Active confirmed Problem hypercholesterolemia (disorder) (86454199) Hypercholesteremia (E78.00) Active confirmed Problem Allergy to pollen (456550006) Allergy to pollen (J30.1) Active confirmed Plan Of Treatment Pending Test Test Name Order Date DEXA Hip and Spine 04/15/2020 Future Test Test Name Order Date SENOBRIGHT ARMINDA 08/08/2019 CBC W/DIFF 10/06/2023 CMP 10/06/2023 LIPID PANEL 10/06/2023 VITAMIN B12 10/06/2023 VITAMIN D 25 OH 10/06/2023 COMPLETE URINALYSIS 10/06/2023 MICROALBUMIN/CREAT RANDOM 10/06/2023 TSH w/ Reflex to Free T4 10/06/2023 Insurance Providers Payer Name Payer Address Payer Phone Subscriber Number Group Number Insured Name Patient Relationship to Insured Coverage Start Date Coverage End Date MEDICARE [address] [place] [phone] [id number] Sana Lopes Self - patient is the insured 7 [facility] [address] [place] [address] [phone] [id number] Sana Lopes Self - patient is the insured 4 Medical (General) History Medical History History ICD Code GERD (gastroesophageal reflux disease) K 21.9 Hypercholesteremia E78.00 Allergy to pollen J30.1 Microscopic hematuria R31.29 Age-related osteoporosis without current pathological fracture M81.0 Vitamin D deficiency E55.9 Chronic GERD K21.9 Microscopic hematuria R31.29 Chronic GERD K21.9 Chronic GERD Surgical History Surgery Date(Month/Year) Hernia Repair hiatal with fundoplication 08/2016 tonsillectomy and adenoidectomy EGD 2020 colonoscopy 2020 Hospitalization History Reason Date(Month/Year) as above
--- OUTSIDE RECORDS SUMMARY | 2025-02-28 13:40 | XMS_ITS | Patient Health Record ---
Author Organization [facility] Address [address] [place], [place] [address] Care Team Providers Care Front End Software Developer Name Role Phone Marci Valdivia Primary Care Provider Allergies Allergen (clinical drug ingredient) Drug/Non Drug Allergy documented on EMR Reaction Allergy Type Onset Date Status Sulfas rash Drug Allergy Active Reason For Referral No Information Medications Medication SIG (Take, Route, Frequency, Duration) Notes Start Date End Date Status Eye Vitamins Active Transderm-Scop 1 MG/3DAYS 1 patch to skin as needed Transdermal every 24 hrs; Duration: 07 days 11/03/2015 Not-Taking Omeprazole 40 MG 1 capsule Orally Once a day Active Latisse 0.03 % 1 drop to affected area Externally Once a day Active Azelastine HCl 0.15 % 1 drop in each nostril Nasally Twice a day; Duration: 30 day(s) prn 11/03/2015 Active Vitamin D (Cholecalciferol) 2000 Iu Active Citracal Calcium+D 500 i/u 630 m g 2 per day Active [place] 3 1000 tid Active Red Yeast Rice Extract 1200 mg 2 x daily Active Marnie Allergy prn 12 hr D Ac tive Immunizations Vaccine Route Administration Date Status Comme nts Adacel Unknown 09/26/2008 Administered Influenza 3 years and > (Flu Vaccine) Unknown 04/26/2012 Administered Influenza 3 years and > (Flu Vaccine) IM Intramuscular 05/01/2013 Administered Pneumococcal (PCV) Unknown 12/10/2014 Administered Pneumococcal (PPSV) IM Intramuscular 10/05/2013 Administer ed Zoster Vaccine (Shingles) Unknown 01/05/2015 Administer ed Problems Problem Type SNOMED Code ICD Code Onset Dates Problem Status W/U Status Risk Notes Problem Osteoporosis (41770229) Osteoporosis (733.00) Active confirmed Problem Hyperlipidaemia (25862107) Hyperlipemia (272.4) Active confirmed Problem Gastroesophageal reflux disease (912104282) GERD (gastroesophagea l reflux disease) (530.81) Active confirmed Problem Vitamin D deficiency (75172055) Vitamin D deficiency (268.9) Active confirmed Problem Preventive patient evaluation (696581461) Preventive measure (V07.9) Active confirmed Problem Influenza vaccine needed (5198772035101) Influenza vaccine needed (V04.81) Active confirmed Problem Pneumococcal conjugate vaccination (397775198754827) Need for Streptococcus pneumoniae vaccination (V03.82) Active confirmed Problem Family history of ischemic heart disease (754994750) FHx: ischemic heart disease (V17.3) Active confirmed Problem Low back pain (413749544) Low back pain (M54.5) Active confirmed Problem Shoulder pain (59135472) Shoulder pain (M25.519) Active confirmed Problem Nasal congestion (58903930) Nasal congestion (R09.81) Active confirmed Problem Weight loss (140912565) Weight loss (R63.4) Active confirmed Problem Plantar fasciitis (417262479) Plantar fasciitis (M72.2) Active confirmed Problem Alopecia (52441119) Hair loss (L65.9) Active confirmed Problem Vitreous floaters (80974710) Floaters (H43.399) Active confirmed Problem Physical examination procedure (2506430) Physical exam, routine (V70.0) Active confirmed Problem Night blindness (73362884) Night blindness (368.60) Active confirmed Problem Motion sickness (35191681) Motion sickness (T75.3XXA) Active confirmed Problem Annual health maintenance examination (20369962) Annual physical exam (Z00.00) Active confirmed Problem Sebaceous hyperplasia (615375220) Sebaceous hyperplasia (L73.8) Active confirmed Plan Of Treatment Pending Test Test Name Order Date Measles/Mumps/Rubella Immunity 5 Insurance Providers Payer Name Payer Address Payer Phone Subscriber Number Group Number Insured Name Patient Relationship to Insured Coverage Start Date Coverage End Date [facility] [address] [place] [phone] [id number] Lopez Lopes Spouse - patient is the spouse of the insured Medical (General) History Medical History History ICD Code gerd seasonal allergies Vit D def hyperlipemia osteoporosis 2011, dexa had reclast last year bladder papilloma Surgical History Surgery Date(Month/Year) colonoscopy 2000,2010 tonsillectomy bilat hernia repair as child leep procedure bladder polyp resection fundoplication 2016
--- OUTSIDE RECORDS SUMMARY | 2025-02-28 13:40 | XMS_ITS | Encounter Summary ---
Author Organization [facility] Address [address] [place] [address] Phone Care Team Providers Care Rn Community Name Role Phone Pratibha Faulkner Primary Care Provider [phone] Pratibha Faulkner Unavailable [phone] Encounter Details Date Type Department Care Team (Late st Contact Info) Description 12/20/2023 Procedure [facility], [facility] [address] [place] [address] Social History Tobacco Use Types Packs/Day Years Used Date Smoking Tobacco: Never Passive Smoke Exposure: Never Smokeless Tobacco: Never Alcohol Use Standard Drinks/Week Comments Yes 0 (1 standard drink = 0.6 oz pur e alcohol) occasional Child or Family Care Answer Date Record ed Do you have problems with on e of the following making it difficult for you to work, study, or receive health care? No 11/29/2023 Education Answer Date Recorded Are you interested in more education? Not on kulwinder e 08/16/2023 Are you concerned about learning? Not on file 08/16/2023 No 08/16/2023 No 08/16/2023 Food Answer Date Recorded Within the past 6 months we worried whether our food would run out before we got money to buy more. Never True 11/29/2023 Food didn't last Not on file 11/29/2023 Residential Stability Answer Date Recor ded What is your housing situation today? I have dalila sing 11/29/2023 How many times have you moved in the past 12 tue ths? One time 11/29/2023 Paying for Meds Answer Date Recorded Do you have trouble paying for medicines? No 11/29/2023 Paying Utility Bills Answer Date Record ed Do you have trouble paying your heating or elect ricity bill? No 11/29/2023 Transportation Answer Date Recorded Has the lack of transportati on kept you from medical appointments or from getting medications? No 11/29/2023 Digital Access Answer Date Recorded No 11/29/2023 Yes 11/29/2023 Do you have reliable internet access at home? Ye s 11/29/2023 Do you have a device (e.g., phone, tablet, computer) with a working camera? Yes 11/29/2023 Intimate Partner Violence Answer Date R ecorded Denied Basic Needs Not on file 11/29/2023 In the past 12 months have y ou been in a relationship with a person who hurts, threatens, or tries to control you? No 11/29/2023 Worried food would run out Not on file 11/28 In the past 12 months have y ou been in a relationship with a person who hurts, threatens, or tries to control you? No 11/29/2023 Comments No Sex and Gender Information Value Date Recorded Sex Assigned at Not on file Legal Sex Female 12:19 PM EST Gender Identity Not on file Sexual Orientation Not on file documented as of this encounter Plan of Treatment Upcoming Encounters Date Type Department Care Team (Late st Contact Info) Description 03/07/2025 2:30 PM EDT Office Visit [facility] [address] [place] [address] [place] [address] Marshall Jacobson DO [address] [place] [address] 05/13/2025 3:20 PM EDT Office Visit [facility] [address] [place] [address] [address]rd Floor, [address] [place] [address] Doug Priest MD [address] [place] [address], [address] [address] 07/16/2025 1:45 PM EST Office Visit [address] [place] [address] Pratibha Faulkner [address] [place] [address], [address] [place] [address] [email or web address] 09/09/2025 1:30 PM EST Office Visit [facility] [address] [place] [address] Yannick Enriquez MD [address] [address] [email or web address] 02/28/2026 2:00 PM EDT Office Visit [address] [place] [address] Pratibha Faulkner [address] [place] [address], [address] [place] [address] [email or web address] documented as of this encounter Visit Diagnoses Not on filedocumented in this encounter Additional Health Concerns Assessment Noted Time PHQ-2 Depression Total Score: 0 01/12/20 24 1:26 PM EDT documented as of this encounter Care Teams Rn Community Relationship Specialty Start Date End Date Pratibha Faulkner [address] [place] [address], [address] [place] [address] [email or web address] PCP - General Family Medicine 11/29/23 Pratibha Faulkner [address] [place] [address], [address] [place] [address] [email or web address] Insurance Assigned Provider 11/04/24 documented as of this encounter Additional Source Comments The information contained in this document represents components of the legal health record. It is not the complete legal health record.[facility]
--- OUTSIDE RECORDS SUMMARY | 2025-02-28 13:40 | XMS_ITS | Patient Health Record ---
Author Organization [facility] Address [address] [address] Care Team Providers Care Sales Analyst Name Role Phone Lulu Jarrettbaz Primary Care Provider Allergies Allergen (clinical drug [...] Orally Twice a day *Pick strength-form from Svpply for eRX* Unknown ProAir HFA 108 (90 Base) MCG/ACT 2 puffs as needed Inhalation every 4 hrs *Reorder from Svpply for eRx and Interaction Alerts* 12/28/2018 Unknown Escitalopram Oxalate 20 MG 1 tablet Orally Once a day; Duration: 30 days Active ZyrTEC Allergy 10 MG 1 tablet Orally Once a day Unknown Azelaic Acid 15 % 1 application Externally Twice a day Unknown Flaxseed (Linseed) 1000 MG Orally Unknown Clobetasol Propionate 0.05 % 1 application Externally Twice a day; Duration: 14 day(s) Unknown Calcium 600 MG 1 Tablet Orally Twice a day Unknown Estradiol 10 MCG 1 _insert Vaginal Two times a Week; Duration: 90 days *Pick strength-form from Svpply for eRX* Active Vitamin D-3 1000 UNIT 4 capsules Orally Once a day *Pick strength-form from Svpply for eRX* Unknown Multivitamin Adult - 1 [...] W/U Status Risk Notes Problem Age-related osteoporosis (257562547) Age-related osteoporosis without current pathological fracture (M81.0) Active confirmed Problem Vitamin D deficiency (21928077) Vitamin D deficiency (E55.9) Active confirmed Problem Obstructive sleep apnea (78696506) Obstructive sleep apnea (G47.33) Active confirmed Problem Gastroesophageal reflux disease (disorder) (131798143) Chronic GERD (K21.9) Active confirmed Problem Daytime somnolence (522054769148) Daytime somnolence (R40.0) Active confirmed Problem Gastroesophageal reflux disease (349442027) GERD (gastroesophageal reflux disease) (K21.9) Active confirmed Problem Morbid obesity (729550451) Morbid obesity (E66.01) Active confirmed Problem Obese class I (548269826046922) BMI 33.0-33.9,adult (Z68.33) Active confirmed Problem Periodic limb moveme nt disorder (597681062) Periodic limb movement (G47.61) Active confirmed Problem hypercholesterolemia (disorder) (68637559) Hypercholesteremia (E78.00) Active confirmed Problem Allergy to pollen (347950649) Allergy to pollen (J30.1) Active confirmed Problem COPD - Chronic obstructive pulmonary disease (74170688) COPD (J44.9) Active confirmed SU, on pro-ai r Problem Mild major depressio n, single episode (81056292) Major depression single (F32.0) Active confirmed Plan Of Treatment Pending Test Test Name Order Date DEXA Hip and Spine 04/15/2020 Future Test Test Name Order Date SENOBRIGHT ARMINDA 08/08/2019 Insurance Providers Payer Name Payer Address Payer Phone Subscriber Number Group Number Insured Name Patient Relationship to Insured Coverage Start Date Coverage End Date MEDICARE [address] [employer] [place] [phone] [id number] Sana Lopes Self - patient is the [...]
--- OUTSIDE RECORDS SUMMARY | 2025-02-28 13:40 | XMS_ITS | Patient Health Record ---
Author Organization [facility] Address [address] [place] [address] Care Team Providers Care Ticket Puller Name Role Phone Pratibha Robbins MD Primary Care Provider Un available Nallely Curran Unavailable [phone] Radha Ahmadi Unavailable [phone] Allergies Allergen (clinical drug ingredient) Drug/Non Drug [...] Duration) Notes Start Date End Date Status Famotidine 20 MG Oral; Duration: 30 Days Active Esomeprazole Magnesium 20 MG TAKE ONE CAPSULE BY MOUTH TWICE DAILY Oral; Duration: 90 Days Active Meloxicam 7.5 MG Oral; Duration: 30 Days Not-Taking Clobetasol 17 Propionate Active Flaxseed Oil Not-Henry ing Flonase Active Cephalexin 500 MG 1 capsule Orally Luz Elena ry 12 hours; Duration: 5 days Not-Taking Red Yeast Rice Activ e Physical Therapy . . . 2-3x/week; Duration: 3-4 weeks Not-Taking amLODIPine Besylate Active Escitalopram Oxalate 20 MG Oral; Duration: 90 Days Acti ve Custom Orthotics as directed 03/06/2024 Active Azelaic Acid Active Calcium Citrate Not- Taking Multivitamin Active ZyrTEC Not-Taking Lexapro Active Vitamin D3 Not-Takin g Hydrolyzed Silk Acti ve Augmentin 500-125 MG 1 tablet Orally Twi ce a day; Duration: 10 day(s) 05/08/2024 Not-Taking Immunizations Vaccine Route Administration Date Status Comme nts Influenza Unknown 04/01/2024 Administered Social History Tobacco Use: Social History Observation Description Date Details (start date - stop date) Never Smoker NA - NA Tobacco use other than smoking: Question Answer Notes Are you an other tobacco user? No Tobacco Control (Standard) Question Answer Notes Tobacco use: Nonsmoker Additional Findings: Tobacco non-user Current no nsmoker AUDIT-C (Standard) Question Answer Notes Did you have a drink containing alcohol in the p ast year? No Points 0 Interpretation Negative Problems Problem Type SNOMED Code ICD Code Onset Dates Problem Status W/U Status Risk Notes Problem Plantar fasciitis, bilateral (M72.2) Active confirmed Vital Signs Blood pressure diastolic 80 mm Hg 02/26/2025 Height 5ft3in in 02/26/2025 Blood pressure systolic 120 mm Hg 02/26/2025 Weight 200 lbs 02/26/2025 BMI 35.42 kg/m2 02/26/2025 Procedures Procedure Date Ordered Date Performed Result Body Sit e [id number] OF HEMATOMA/FLUID 05/08/2024 N/A Encounters Encounter Location Date Provider Diagnosis [facility] [address] 03/06/2024 Nallely Perica Tinea unguium B35.1 ; Pain in right toe(s) M79.674 ; Pain in right foot M79.671 ; Other myositis of right foot M60.871 ; Plantar fasciitis, bilateral M72.2 ; Bursitis of right foot M77.51 ; Pain in left foot M79.672 ; Other myositis of left foot M60.872 and Bursitis of left foot M77.52 [facility] [address] [address] 04/24/2024 Nallely Perica Tinea unguium B35.1 ; Plantar fasciitis, bilateral M72.2 ; Pain in right toe(s) M79.674 ; Pain in right foot M79.671 ; Other myositis of right foot M60.871 ; Bursitis of right foot M77.51 ; Pain in left foot M79.672 ; Other myositis of left foot M60.872 and Bursitis of left foot M77.[address] [address] 05/08/2024 Radha Ahmadi Hematoma of toe of right foot, initial encounter S90.121A ; Abscess of toe of right foot L02.611 and Acute cellulitis L03.[address] [address] 05/15/2024 Radha Ahmadi Cellulitis of toe of right foot L03.[address] [address] 06/12/2024 Nallely Perica Abscess of toe, righ t L02.611 ; Cellulitis of toe of right foot L03.031 ; Tinea unguium B35.1 ; Pain in right toe(s) M79.674 and Plantar fasciitis, bilateral M72.[address] [address] 09/07/2024 Nallely Perica Tinea unguium B35.1 ; Plantar fasciitis, bilateral M72.2 ; Pain in right toe(s) M79.674 and Pain in right foot M79.[address] [address] 02/26/2025 Nallely Perica Pain in right toe(s) M79.674 ; Onychomycosis B35.1 and Pain in left toe(s) M79.[address] [address] 03/06/2024 Nallely Perica [facility] [address] 03/06/2024 Nallely Perica [facility] [address] 04/24/2024 Nallely Perica [address] [address] 05/08/2024 Nallely Perica [address] [address] 06/04/2024 Nallely Curran [facility] [place] [address] [place] [address] 06/12/2024 Nallely Curran [facility] [place] [address] [place] [address] 07/09/2024 Nallely Magdy [facility] [place] [address] [place] [address] 02/26/2025 Nallely Curran [facility] Encounter Date Diagnosis (ICD Code) Assessment Notes [...] toe of right foot (ICD-10 - L03.031) 09/07/2024 Tinea unguium (ICD-10 - B35.1) 09/07/2024 Plantar fasciitis, bilateral (ICD-10 - M72.2) 02/26/2025 Pain in right toe(s) (ICD-10 - M79.674) 02/26/2025 Onychomycosis (ICD-10 - B35.1) 09/07/2024 Pain in right toe(s) (ICD-10 - M79.674) 06/12/2024 Tinea unguium (ICD-10 - B35.1) 05/08/2024 Acute cellulitis (ICD-10 - L03.90) 04/24/2024 Pain in right toe(s) (ICD-10 - M79.674) 03/06/2024 Pain in right toe(s) (ICD-10 - M79.674) 03/06/2024 Pain in right foot (ICD-10 - M79.671) 06/12/2024 Pain in right toe(s) (ICD-10 - M79.674) 04/24/2024 Pain in right foot (ICD-10 - M79.671) 09/07/2024 Pain in right foot (ICD-10 - M79.671) 02/26/2025 Pain in left toe(s) (ICD-10 - M79.675) 06/12/2024 Plantar fasciitis, bilateral (ICD-10 - M72.2) [...] X ray : Foot, right 3V 03/06/2024 [id number] OF HEMATOMA/FLUID 024 Next Appt Details Provider Name:Nallely root, 05/31/2025 01:00:00 PM, [address] [place], [address], Insurance Providers Payer Name Payer Address Payer Phone Subscriber Number Group Number Insured Name Patient Relationship to Insured Coverage Start Date Coverage End Date Medicare National [employer] [address] [place] [phone] [id number] Sana Lopes Self - patient is the insured [facility] [address] [place] [address] [id number] Sana Lopes Self - patient is the insured Medical (General) History Medical History History ICD Code Anemia Anxiety Arthritis asthma Back pain Knee Pain Cataracts Hiatal hernia Reflux ( GERD) Measles Mumps Chicken pox Sleep apnea Surgical History Surgery Date(Month/Year) colonoscopy 2022 EGD 2022 EGD 01/23
== END 2025-02-28 13:45 | disposition home or self-care (01) ==
LOC: HO.HGI 13:28
PROVIDERS: PCP Student in an Organized Health Care Education/Training Program; Visit Provider Internal Medicine Gastroenterology
DX: K21.9 Gastro-esophageal reflux disease without esophagitis (principal); K31.7 Polyp of stomach and duodenum; K44.9 Diaphragmatic hernia without obstruction or gangrene; Z86.0100 Personal history of colon polyps, unspecified
CPT/HCPCS: 99213

== ENCOUNTER → 2025-02-28 13:27 | Outpatient (BNVA) | payer MEDICARE, BC, SELFPAY | PROVIDERS: PCP Student in an Organized Health Care Education/Training Program; Visit Provider Internal Medicine Gastroenterology | DX: K21.9 Gastro-esophageal reflux disease without esophagitis (principal); K31.7 Polyp of stomach and duodenum; K44.9 Diaphragmatic hernia without obstruction or gangrene; Z86.0100 Personal history of colon polyps, unspecified | CPT/HCPCS: 99212 ==